=== PATIENT | female | born 1980 | race Caucasian/White ===

== ENCOUNTER → 2017-01-11 | Outpatient (CLI) | payer OTHER ==
--- NOTE | 2017-01-11 17:10 | CR ---
EXAMINATION: Right shoulder HISTORY: Pain COMPARISON: None TECHNIQUE: 3 views FINDINGS/IMPRESSION: There is no acute osseous abnormality, dislocation, or fracture identified. Bon e mineralization and joint spaces appear normal.
== END ==
LOC: MW.CHRC 15:16
PROVIDERS: ATTEND Family Medicine
DX: M25.511 Pain in right shoulder (principal)
CPT/HCPCS: 73030-26-RT; 73030-RT

== ENCOUNTER → 2017-02-25 | Outpatient (CLI) | payer OTHER ==
--- NOTE | 2017-02-28 09:24 | MR ---
EXAMINATION: MRI of the right shoulder HISTORY: Pain COMPARISON: Radiographs dated 01/11/2017 TECHNIQUE: Multiplanar and multisequence images obtained through the right shoulder without contra st. FINDINGS: There is a type II acromion. There is a trace subdeltoid fluid signal. Minimal periarticu lar edema is noted at the acromioclavicular joint. The supraspinatus, infraspinatus, and teres minor tendons appear intact. There is however mild edema within the muscular aspect of the supraspinatus tendon. The long head biceps tendon is present within the bicipital groove. The subscapularis tendon appears intact. The glenohumeral articular surfaces are preserved. The inferior glenohumeral ligame nt is intact. No suspicious bone marrow signal changes. IMPRESSION: 1. Mild edema along the pes planus muscular body, this could represent a mild to moderate muscular s train. 2. No evidence of rotator cuff arthropathy.
== END ==
LOC: MW.MRI 10:29
PROVIDERS: ATTEND Anesthesiology
DX: M25.511 Pain in right shoulder (principal)
CPT/HCPCS: 73221-26-RT; 73221-RT

== ENCOUNTER 2018-07-06 09:14 | Day surgery (SDC) | payer OTHER ==
[2018-07-05 14:35] LABS: CHLORIDE,CL 102 mmol/L (98-107); SODIUM,NA 137 mmol/L (136-145)
[~2018-07-06 09:14] MED LIST: Lactated Ringers 1,000 ML IV SCH; Sodium Chloride 0.9% 10 ML Syringe FLUSH PRN; Sodium Chloride 0.9% 2.5 ML Syringe FLUSH PRN
[2018-07-06] MEDS ORDERED: fentaNYL 250 MCG/5 ML SDV ONE (10:09)
[2018-07-06] MEDS ORDERED: Lidocaine 2% 5 ML SDV ONE (10:09)
[2018-07-06] MEDS ORDERED: Rocuronium 10 MG/ML 10 ML Syringe ONE (10:09)
[2018-07-06] MEDS ORDERED: Ondansetron 4 MG/2 ML SDV ONE ×2 (10:09→13:14)
[2018-07-06] MEDS ORDERED: Midazolam 1 MG/ML 2 ML SDV ONE (10:09)
[2018-07-06] MEDS ORDERED: Propofol 200 MG/20 ML SDV ONE (10:09)
--- NOTE | 2018-07-06 10:18 | PCM.PREANE ---
Preanesthetic Assessment - Anesthesia/Transfusion/Family Hx Anesthesia History: Prior Anesthesia Without Reaction (slow to wake up) Other Type of Anesthesia Reaction Comment: "slow to wake", "depression 3 weeks after anesthesia" Family History of Anesthesia Reaction: No Transfusion History: No Prior Transfusion(s) Intubation History: Unknown - Review of Systems General: No Symptoms Pulmonary: No Symptoms Cardiovascular: No Symptoms Gastrointestinal: Abdominal Pain (chronic pelvic pain) Neurological: No Symptoms Other: Reports: None - Physical Assessment Height: 1.6 m Weight: 65.771 kg ASA Class: 2 Mental Status: Alert & Oriented x3 Airway Class: Mallampati = 2 Dentition: Reports: Sour John(s) (8,9 plus veneer 6,7,10,11) Thyro-Mental Finger Breadths: 3 Mouth Opening Finger Breadths: 3 ROM/Head Extension: Full Lungs: Clear to Auscultation, Normal Respiratory Effort Cardiovascular: Regular Rate, Regular Rhythm - Lab Values: Laboratory Last Values WBC 9.25 K/uL (4.0-11.0) 07/05/18 14:07 RBC 4.81 M/uL (4.30-5.90) 07/05/18 14:07 Hgb 15.1 g/dL (12.0-16.0) 07/05/18 14:07 Hct 43.6 % (36.0-46.0) 07/05/18 14:07 MCV 90.6 fL (80.0-98.0) 07/05/18 14:07 MCH 31.4 pg (27.0-32.0) 07/05/18 14:07 MCHC 34.6 g/dL (31.0-37.0) 07/05/18 14:07 RDW Std Deviation 42.0 fl (28.0-62.0) 07/05/18 14:07 RDW Coeff of Lizz 13 % (11.0-15.0) 07/05/18 14:07 Plt Count 295 K/uL (150-400) 07/05/18 14:07 MPV 9.70 fL (7.40-12.00) 07/05/18 14:07 Nucleated RBC % 0.0 /100WBC 07/05/18 14:07 Nucleated RBCs # 0 K/uL 07/05/18 14:07 Sodium 137 mmol/L (136-145) 07/05/18 14:07 Potassium 4.5 mmol/L (3.5-5.1) 07/05/18 14:07 Chloride 102 mmol/L (98-107) 07/05/18 14:07 Carbon Dioxide 28.0 mmol/L (21.0-32.0) 07/05/18 14:07 BUN 15 mg/dL (7.0-18.0) 07/05/18 14:07 Creatinine 0.8 mg/dL (0.6-1.0) 07/05/18 14:07 Est Cr Clr Drug Dosing 81.19 mL/min 07/05/18 14:07 Estimated GFR (MDRD) > 60.0 ml/min 07/05/18 14:07 Glucose 94 mg/dL (74-106) 07/05/18 14:07 Calcium 9.2 mg/dL (8.5-10.1) 07/05/18 14:07 HCG, Qual NEGATIVE (NEG) 07/05/18 14:07 Blood Type A POSITIVE 07/05/18 14:07 Antibody Screen NEGATIVE 07/05/18 14:07 - Allergies Allergies/Adverse Reactions: Allergies Allergy/AdvReac Type Severity Reaction Status Date / Time latex Allergy Rash Verified 07/04/18 08:05 shellfish derived Allergy tongue Verified 07/04/18 08:08 swelling, throat tightness Sulfa (Sulfonamide Allergy Rash Verified 07/04/18 08:05 Antibiotics) telithromycin [From Ketek] Allergy Hives Verified 07/04/18 08:05 dust Allergy watery Uncoded 07/04/18 08:08 eyes, runny nose - Blood Blood Available: No - Anesthesia Plan Pre-Op Medication Ordered: None - Acknowledgements Anesthesia Type Planned: General Anesthesia Pt an Appropriate Candidate for the Planned Anesthesia: Yes Alternatives and Risks of Anesthesia Discussed w Pt/Guardian: Yes Pt/Guardian Understands and Agrees with Anesthesia Plan: Yes PreAnesthesia Questionnaire HEENT History: Reports: Other (See Below) Other HEENT History: Wears glasses Cardiovascular History: Reports: None Respiratory History: Reports: Other (See Below) Other Respiratory History: milk seasonal asthma Gastrointestinal History: Reports: GERD (mild) Genitourinary History: Reports: Other (See Below) Other Genitourinary History: "floating rt kidney" [employer]LE[employer] SPECIALIST History: Reports: Musculoskeletal History: Reports: Back Pain, Chronic, Fibromyalgia, Neck Pain, Chronic, Other (See Below) Other Musculoskeletal History: Degenerative disc disease, "cyst in my spine" ( syrinx) . Chronic pain syndrome. Neurological History: Reports: None Psychiatric History: Reports: Anxiety, Depression Endocrine/Metabolic History: Reports: None Hematologic History: Reports: None Immunologic History: Reports: None Oncologic (Cancer) History: Reports: None Dermatologic History: Reports: Psoriasis - Infectious Disease History Infectious Disease History: Reports: None - Past Surgical History Head Surgeries/Procedures: Reports: None GI Surgical History: Reports: Cholecystectomy, EGD Female Surgical History: Reports: Breast Implant, Other (See Below) Other Female Surgeries/Procedures: bartholin's cyst excision Other Musculoskeletal Surgeries/Procedures:: 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 - SUBSTANCE USE Smoking Status *Q: Former Smoker Tobacco Use Within Last Twelve Months: No Recreational Drug Use History: No - HOME MEDS Home Medications: Home Meds Cyclobenzaprine [Flexeril] 10 mg PO ASDIRECTED PRN 10/02/16 [History] Gabapentin [Neurontin] 300 mg PO BID 10/02/16 [History] Ketamine Nasal [place] 1 - 2 spray TOP BID 10/02/16 [History] Acetaminophen [Tylenol] 2 tab PO ASDIRECTED PRN 07/04/18 [History] Calcium Carbonate [Tums] 1 tab.chew CHEW ASDIRECTED PRN 07/04/18 [History] Cholecalciferol (Vitamin D3) [Vitamin D3] 5,000 units PO DAILY 07/04/18 [History ] Diclofenac Sodium 1 applic TOP ASDIRECTED PRN 07/04/18 [History] Fish Oil/[place]-3 Fatty Acids [Fish Oil 1,000 MG] 1,000 mg PO DAILY 07/04/18 [ History] Ibuprofen [Advil] 800 mg PO ASDIRECTED PRN 07/04/18 [History] Ketamine Cream 1 applic TOP ASDIRECTED PRN 07/04/18 [History] L.acidoph,Paracasei, B.lactis [Probiotic] 1 tab PO DAILY 07/04/18 [History] Lidocaine/Prilocaine [Lidocaine-Prilocaine Cream] 1 applic TOP ASDIRECTED PRN [History] Magnesium Glycinate [Mag Glycinate] 1 tab PO DAILY 07/04/18 [History] Mecobal/Levomefolat Ca/B6 Phos [Foltanx Tablet] 1 tab PO BID 07/04/18 [History] Melatonin 5 mg PO BEDTIME PRN 07/04/18 [History] Multivitamin [Multivitamins] 1 tab PO DAILY 07/04/18 [History] - CURRENT (IN HOUSE) MEDS Current Meds: Current Medications Lactated Ringer's (Ringers, Lactated) 1,000 mls @ 125 mls/hr IV ASDIRECTED LEONID Sodium Chloride (Saline Flush) 10 ml FLUSH ASDIRECTED PRN PRN Reason: Keep Vein Open Sodium Chloride (Saline Flush) 2.5 ml FLUSH ASDIRECTED PRN PRN Reason: Keep Vein Open Discontinued Medications Fentanyl (Sublimaze) Confirm Administered Dose 250 mcg .ROUTE .STK-MED ONE Stop: 07/06/18 10:10 Lidocaine (Xylocaine-Mpf 2%) Confirm Administered Dose 5 ml .ROUTE .STK-MED ONE Stop: 07/06/18 10:10 Midazolam HCl (Versed 1 Mg/Ml) Confirm Administered Dose 2 mg .ROUTE .STK-MED ONE Stop: 07/06/18 10:10 Ondansetron HCl (Zofran) Confirm Administered Dose 4 mg .ROUTE .STK-MED ONE Stop: 07/06/18 10:10 Propofol (Diprivan 20 Ml) Confirm Administered Dose 200 mg .ROUTE .STK-MED ONE Stop: 07/06/18 10:10 Rocuronium [place] (Zemuron) Confirm Administered Dose 100 mg .ROUTE .STK-MED ONE Stop: 07/06/18 10:10
[2018-07-06] MEDS ORDERED: Ketorolac 30 MG/ML SDV ONE (12:16)
[2018-07-06] MEDS ORDERED: Octyl 2-Cyanoacrylate 1 Tube ONE (12:34)
[2018-07-06] MEDS ORDERED: Acetaminophen/oxyCODONE 325-5 MG Tab PO PRN ×2 (12:35)
[2018-07-06] MEDS ORDERED: Promethazine 25 MG/ML SDV IM PRN (12:35)
[2018-07-06] MEDS ORDERED: Ondansetron 4 MG/2 ML SDV IVPUSH PRN (12:35)
[2018-07-06] MEDS ORDERED: Ketorolac 30 MG/ML SDV IVPUSH PRN (12:35)
[2018-07-06] MEDS ORDERED: Ketorolac 30 MG/ML SDV IVPUSH ONE (12:35)
--- NOTE | 2018-07-06 12:40 | PCM.OPNOTE ---
- General Post-Op/Procedure Note Date of Surgery/Procedure: 07/06/18 Operative Procedure(s): Dignostic laparoscopy, excion and fulgeration of endometerosis Pre Op Diagnosis: Pelvic Pain possible endometrosis Post-Op Diagnosis: Same Anesthesia Technique: General ET Tube Primary Surgeon: Abhishek Madison Hydraulic Oil Tool Operator: Maria R Gaston EBL in mLs: 20 Complications: None Condition: Good
--- NOTE | 2018-07-06 12:41 | PCM.DCSUM1 ---
Discharge Summary - Hospital Course Diagnosis: Stroke: No - Discharge Data Discharge Date: 07/06/18 Discharge Disposition: Home, Self-Care 01 Condition: Good - Patient Summary/Data Operative Procedure(s) Performed: Dignostic laparoscopy, excion and fulgeration of endometerosis - Patient Instructions Diet: Usual Diet as Tolerated Activity: As Tolerated Driving: Do Not Drive Showering/Bathing: May Shower Wound/Incision Care: Keep Operative Site/Wound Site Clean and Dry Notify Provider of: Fever, Increased Pain, Nausea and/or Vomiting - Discharge Plan Home Medications: Home Meds Cyclobenzaprine [Flexeril] 10 mg PO ASDIRECTED PRN 10/02/16 [History] Gabapentin [Neurontin] 300 mg PO BID 10/02/16 [History] Ketamine Nasal [place] 1 - 2 spray TOP BID 10/02/16 [History] Acetaminophen [Tylenol] 2 tab PO ASDIRECTED PRN 07/04/18 [History] Calcium Carbonate [Tums] 1 tab.chew CHEW ASDIRECTED PRN 07/04/18 [History] Cholecalciferol (Vitamin D3) [Vitamin D3] 5,000 units PO DAILY 07/04/18 [History ] Diclofenac Sodium 1 applic TOP ASDIRECTED PRN 07/04/18 [History] Fish Oil/[place]-3 Fatty Acids [Fish Oil 1,000 MG] 1,000 mg PO DAILY 07/04/18 [ History] Ibuprofen [Advil] 800 mg PO ASDIRECTED PRN 07/04/18 [History] Ketamine Cream 1 applic TOP ASDIRECTED PRN 07/04/18 [History] L.acidoph,Paracasei, B.lactis [Probiotic] 1 tab PO DAILY 07/04/18 [History] Lidocaine/Prilocaine [Lidocaine-Prilocaine Cream] 1 applic TOP ASDIRECTED PRN [History] Magnesium Glycinate [Mag Glycinate] 1 tab PO DAILY 07/04/18 [History] Mecobal/Levomefolat Ca/B6 Phos [Foltanx Tablet] 1 tab PO BID 07/04/18 [History] Melatonin 5 mg PO BEDTIME PRN 07/04/18 [History] Multivitamin [Multivitamins] 1 tab PO DAILY 07/04/18 [History] - General Info Date of Service: 07/06/18 Functional Status: Reports: Pain Controlled - Review of Systems General: Reports: No Symptoms HEENT: Reports: No Symptoms Pulmonary: Reports: No Symptoms Cardiovascular: Reports: No Symptoms Gastrointestinal: Reports: No Symptoms Genitourinary: Reports: No Symptoms Musculoskeletal: Reports: No Symptoms Skin: Reports: No Symptoms Neurological: Reports: No Symptoms Psychiatric: Reports: No Symptoms - Patient Data Vitals - Most Recent: Last Vital Signs Temp 36.1 C 07/06/18 10:00 Pulse 90 07/06/18 10:00 Resp 16 07/06/18 10:00 BP 118/83 07/06/18 10:00 Pulse Ox 100 07/06/18 10:00 Weight - Most Recent: 65.771 kg Lab Results - Last 24 hrs: Laboratory Results - last 24 hr 07/05/18 07/05/18 07/05/18 Range/Units 14:07 14:07 14:07 WBC 9.25 (4.0-11.0) K/uL RBC 4.81 (4.30-5.90) M/uL Hgb 15.1 (12.0-16.0) g/dL Hct 43.6 (36.0-46.0) % MCV 90.6 (80.0-98.0) fL MCH 31.4 (27.0-32.0) pg MCHC 34.6 (31.0-37.0) g/dL RDW Std Deviation 42.0 (28.0-62.0) fl RDW Coeff of Lizz 13 (11.0-15.0) % Plt Count 295 (150-400) K/uL MPV 9.70 (7.40-12.00) fL Nucleated RBC % 0.0 /100WBC Nucleated RBCs # 0 K/uL Sodium 137 (136-145) mmol/L Potassium 4.5 (3.5-5.1) mmol/L Chloride 102 (98-107) mmol/L Carbon Dioxide 28.0 (21.0-32.0) mmol/L BUN 15 (7.0-18.0) mg/dL Creatinine 0.8 (0.6-1.0) mg/dL Est Cr Clr Drug Dosing 81.19 mL/min Estimated GFR (MDRD) > 60.0 ml/min Glucose 94 (74-106) mg/dL Calcium 9.2 (8.5-10.1) mg/dL HCG, Qual NEGATIVE (NEG) Blood Type Antibody Screen 07/05/18 Range/Units 14:07 WBC (4.0-11.0) K/uL RBC (4.30-5.90) M/uL Hgb (12.0-16.0) g/dL Hct (36.0-46.0) % MCV (80.0-98.0) fL MCH (27.0-32.0) pg MCHC (31.0-37.0) g/dL RDW Std Deviation (28.0-62.0) fl RDW Coeff of Lizz (11.0-15.0) % Plt Count (150-400) K/uL MPV (7.40-12.00) fL Nucleated RBC % /100WBC Nucleated RBCs # K/uL Sodium (136-145) mmol/L Potassium (3.5-5.1) mmol/L Chloride (98-107) mmol/L Carbon Dioxide (21.0-32.0) mmol/L BUN (7.0-18.0) mg/dL Creatinine (0.6-1.0) mg/dL Est Cr Clr Drug Dosing mL/min Estimated GFR (MDRD) ml/min Glucose (74-106) mg/dL Calcium (8.5-10.1) mg/dL HCG, Qual (NEG) Blood Type A POSITIVE Antibody Screen NEGATIVE Med Orders - Current: Current Medications Lactated Ringer's (Ringers, Lactated) 1,000 mls @ 125 mls/hr IV ASDIRECTED [facility] Last Admin: 07/06/18 10:16 Dose: 125 mls/hr Ketorolac Tromethamine (Toradol) 30 mg IVPUSH Q6H PRN PRN Reason: Pain (severe 7-10) Stop: 07/11/18 12:35 Morphine Sulfate (Morphine) 4 mg IVPUSH Q2H PRN PRN Reason: Pain (severe 7-10) Ondansetron HCl (Zofran) 4 mg IVPUSH Q6H PRN PRN Reason: Nausea/Vomiting Oxycodone/Acetaminophen (Percocet 325-5 Mg) 1 tab PO Q4H PRN PRN Reason: Pain (moderate 4-6) Oxycodone/Acetaminophen (Percocet 325-5 Mg) 2 tab PO Q4H PRN PRN Reason: Pain (moderate 4-6) Promethazine HCl (Phenergan) 25 mg IM Q6H PRN PRN Reason: Nausea/Vomiting Sodium Chloride (Saline Flush) 10 ml FLUSH ASDIRECTED PRN PRN Reason: Keep Vein Open Sodium Chloride (Saline Flush) 2.5 ml FLUSH ASDIRECTED PRN PRN Reason: Keep Vein Open Discontinued Medications Fentanyl (Sublimaze) Confirm Administered Dose 250 mcg .ROUTE .STK-MED ONE Stop: 07/06/18 10:10 Ketorolac Tromethamine (Toradol) Confirm Administered Dose 30 mg .ROUTE .STK- MED ONE Stop: 07/06/18 12:17 Ketorolac Tromethamine (Toradol) 30 mg IVPUSH ONETIME ONE Stop: 07/06/18 12:36 Lidocaine (Xylocaine-Mpf 2%) Confirm Administered Dose 5 ml .ROUTE .STK-MED ONE Stop: 07/06/18 10:10 Midazolam HCl (Versed 1 Mg/Ml) Confirm Administered Dose 2 mg .ROUTE .STK-MED ONE Stop: 07/06/18 10:10 Octyl Cyanoacrylate (Dermabond Advance) Confirm Administered Dose 1 applic .ROUTE .STK-MED ONE Stop: 07/06/18 12:35 Ondansetron HCl (Zofran) Confirm Administered Dose 4 mg .ROUTE .STK-MED ONE Stop: 07/06/18 10:10 Propofol (Diprivan 20 Ml) Confirm Administered Dose 200 mg .ROUTE .STK-MED ONE Stop: 07/06/18 10:10 Rocuronium [place] (Zemuron) Confirm Administered Dose 100 mg .ROUTE .STK-MED ONE Stop: 07/06/18 10:10 - Exam General: Reports: Alert, Oriented HEENT: Reports: Pupils Equal, Pupils Reactive, EOMI, Mucous Membr. Moist/[place] Neck: Reports: Supple Lungs: Reports: Clear to Auscultation, Normal Respiratory Effort Cardiovascular: Reports: Regular Rate, Regular Rhythm GI/Abdominal Exam: Normal Bowel Sounds, Soft, Non-Tender, No Organomegaly, No Distention, No Abnormal Bruit, No Mass, Pelvis Stable (Female) Exam: Normal External Exam, Normal Speculum Exam, Normal Bimanual Exam Rectal (Female) Exam: Normal Exam, Normal Rectal Tone Back Exam: Reports: Normal Inspection, Full Range of Motion Extremities: Normal Inspection, Normal Range of Motion, Non-Tender, No Pedal Edema, Normal Capillary Refill Skin: Reports: Warm, Dry, Intact Wound/Incisions: Reports: Healing Well Neurological: Reports: No New Focal Deficit Psy/Mental Status: Reports: Alert, Normal Affect, Normal Mood
[2018-07-06] MEDS: fentaNYL 100 MCG/2 ML SDV IVPUSH PRN ×2 (13:05→13:10)
[2018-07-06] MEDS ORDERED: Scopolamine 1.5 MG Transdermal Patch ONE (13:14)
[2018-07-06] MEDS: Morphine 4 MG/ML Syringe IVPUSH PRN ×2 (13:19→14:15)
[2018-07-06] MEDS ORDERED: HYDROmorphone 2 MG/ML SDV ONE (13:27)
[2018-07-06] MEDS ORDERED: HYDROmorphone 2 MG/ML SDV IVPUSH ONE (13:28)
--- NOTE | 2018-07-06 13:39 | PCM.POSTAN ---
POST ANESTHESIA ASSESSMENT - MENTAL STATUS Mental Status: Alert, Oriented - RESPIRATORY Respiratory Status: Respiratory Rate WNL, Airway Patent, O2 Saturation Stable - CARDIOVASCULAR CV Status: Pulse Rate WNL, Blood Pressure Stable - GASTROINTESTINAL GI Status: No Symptoms - PAIN Pain Score: 5 - POST OP HYDRATION Hydration Status: Adequate & Stable
[2018-07-06 15:04] VITALS: BP 110/64
--- NOTE | 2018-07-06 20:51 | OR ---
SURGEON: Abhishek Madison MD DATE OF PROCEDURE: 07/06/2018 PREOPERATIVE DIAGNOSES: 1. Pelvic pain. 2. Suspected endometriosis. POSTOPERATIVE DIAGNOSES: 1. Pelvic pain. 2. Endometriosis of the bladder, uterosacral ligament, and the pelvic sidewall, stage I grade 1 by the [employer] staging. OPERATION PERFORMED: Multiple puncture diagnostic laparoscopy, excision and fulguration of endometriosis. ASSORTER LAUNDRY: SOHAIL Zepeda ANESTHESIA: General endotracheal intubation, Ary Dyer and Dr. Pickard. ESTIMATED BLOOD LOSS: Less than 50 mL. COMPLICATIONS: None. FINDINGS: Endometriosis of the bladder flap and then endometriosis on both the uterosacral and ligament in the back of the uterus and then there is a spot of few endometriosis on the left pelvic sidewall. INDICATION FOR SURGERY: [place] refer to the admit note. PROCEDURE IN DETAIL: The patient was brought to the OR, properly identified. After adequate level of anesthesia, the patient was placed in lithotomy position with an access to the abdomen and the vagina. The patient was prepped and draped in sterile fashion as usual. Straight catheter was used to empty the bladder and a Hulka manipulator was placed in the uterus for manipulation. The operation shifted abdominally. Stab wound done beneath the umbilicus. The Veress needle was placed in the peritoneal cavity and that cavity insufflated for 3.5 L of carbon dioxide and then after removing the Veress needle, using the Visiport technique, the abdomen entered with 5 mm trocar umbilically. Once this diet done, then two 5 mm trocar in the right left iliac fossa was done and then the exploring the pelvis with the laparoscope systematically started with the left ovary and ending with the right ovary and with above-mentioned dictated finding. Once we established the finding in the endometriosis spot, then excision of the endometriosis from the bladder flap and the left pelvic sidewall done utilizing unipolar electrocautery without any problem and then the endometriosis spot, which is in the uterosacral ligament and the back of the uterus was fulgurated completely. Satisfied with these finding, and thorough irrigation of the pelvis was done and there was no oozing, no bleeding. The multiple laparoscopic incision was removed and the laparoscopic incision was closed with 2-0 Vicryl and suture in layers. Instrument and sponge count were correct. The patient tolerated the procedure well and went to recovery room in stable general condition. MICHELLE / KAYDEN /[id number]
== END 2018-07-06 15:30 | disposition home or self-care (01) ==
LOC: MW.SDS 09:14
PROVIDERS: ATTEND Obstetrics & Gynecology
DX: N80.3 Endometriosis of pelvic peritoneum (principal); N80.8 Other endometriosis; J45.909 Unspecified asthma, uncomplicated; K21.9 Gastro-esophageal reflux disease without esophagitis; Z87.891 Personal history of nicotine dependence; Z79.899 Other long term (current) drug therapy; Z91.040 Latex allergy status; Z91.048 Other nonmedicinal substance allergy status; Z91.013 Allergy to seafood; Z88.2 Allergy status to sulfonamides; Z88.8 Allergy status to other drugs, medicaments and biological substances
CPT/HCPCS: 36415; 58662; 80048; 84703; 85027; 86850; 86900; 86901; 88305; A9270; J1170; J1885; J2250; J2270; J2405; J2704; J3010; J7120

== ENCOUNTER 2019-06-08 14:59 | Emergency (ER) | payer BC, OTHER ==
[2019-06-08] MEDS ORDERED: Sodium Chloride 0.9% 1,000 ML IV ONE (15:31)
[2019-06-08] MEDS ORDERED: Ondansetron 4 MG/2 ML SDV IVPUSH ONE (15:33)
[2019-06-08] MEDS ORDERED: diphenhydrAMINE 50 MG/ML SDV IVPUSH ONE (15:33)
[2019-06-08] MEDS ORDERED: Metoclopramide 10 MG/2 ML SDV IV ONE (15:33)
[2019-06-08] MEDS ORDERED: Ketorolac 30 MG/ML SDV IVPUSH ONE (15:33)
--- NOTE | 2019-06-08 15:38 | EDM.PDOC ---
<Yoana Stevens - Last Filed: 06/08/19 15:33> ED HPI GENERAL MEDICAL PROBLEM - General Chief Complaint: General Stated Complaint: VOMITTING Time Seen by Provider: 06/08/19 15:02 Source of Information: Reports: Patient History Limitations: Reports: No Limitations - History of Present Illness INITIAL COMMENTS - FREE TEXT/NARRATIVE: HISTORY AND PHYSICAL: History of present illness: Patient is a 38-year-old female presents to the ED today with concern of headache, generalized body aches, and neck pain. Patient states she tried calling [facility] to be seen and evaluated today was told she needed to come to the ED. Patient states over the past couple days she has just had an increase in fatigue as well as generalized body aches. Patient states she has not had a fever. Patient states she has a history of migraines but her headache today is slightly different and not the pain is more intense. Patient states she also has neck pain but no neck stiffness. She feels as if the muscles of her neck are aching. Patient denies any direct injury or trauma. Patient denies any health history. Patient states she has had a hysterectomy. Patient denies any other symptoms or concerns at this time. Patient denies fever, chills, chest pain, shortness of breath, or cough. Denies change in vision, syncope, or near syncope. Denies nausea, vomiting, abdominal pain, diarrhea, constipation, or dysuria. Has not noted any blood in urine or stool. Patient has been eating and drinking appropriately. Review of systems: As per history of present illness and below otherwise all systems reviewed and negative. Past medical history: As per history of present illness and as reviewed below otherwise noncontributory. Surgical history: As per history of present illness and as reviewed below otherwise noncontributory. Social history: See social history for further information Family history: As per history of present illness and as reviewed below otherwise noncontributory. Physical exam: General: Patient is alert, oriented, and in no acute distress. Patient sitting comfortably on exam table. HEENT: Atraumatic, normocephalic, pupils equal and reactive bilaterally, negative for conjunctival pallor or scleral icterus, mucous membranes moist, TMs normal bilaterally, throat clear, neck supple, nontender, trachea midline. No drooling or trismus noted. No meningeal signs. No hot potato voice noted. Lungs: Clear to auscultation, breath sounds equal bilaterally, chest nontender. Heart: S1S2, regular rate and rhythm without overt murmur Abdomen: Soft, nondistended, nontender. Negative for masses or hepatosplenomegaly. Negative for costovertebral tenderness. Pelvis: Stable nontender. Genitourinary: Deferred. Rectal: Deferred. Skin: Intact, warm, dry. No lesions or rashes noted. Extremities/Musculoskeletal: Atraumatic, negative for cords or calf pain. Neurovascular unremarkable. Negative Kernig and Brudzinski sign. No nuchal ridging. No obvious deformities of the complete spine. No step-offs, crepitus, or point tenderness on palpation of the complete spine. Patient has full range of motion of complete spine without difficulty or deficit. Neuro: Awake, alert, oriented. Cranial nerves II through XII unremarkable. Cerebellum unremarkable. Motor and sensory unremarkable throughout. Exam nonfocal. Notes: JANAY Beltran has assumed care of patient and will follow all remaining diagnostics and disposition for patient. Diagnostics: CBC, CMP, UA, Head CT, [place], Strep, Influenza Therapeutics: NS, Benadryl, Zofran, Toradol, Reglan Prescription: Impression: Headache Generalized body aches Neck pain Fatigue Plan: Definitive disposition and diagnosis as appropriate pending reevaluation and review of above. Headache Pain Score (Numeric/FACES): 7 - Related Data Allergies Allergy/AdvReac Type Severity Reaction Status Date / Time latex Allergy Rash Verified 06/08/19 15:25 shellfish derived Allergy tongue Verified 06/08/19 15:25 swelling, throat tightness Sulfa (Sulfonamide Allergy Rash Verified 06/08/19 15:25 Antibiotics) telithromycin [From Ketek] Allergy Hives Verified 06/08/19 15:25 dust Allergy watery Uncoded 07/04/18 08:08 eyes, runny nose Home Meds: Home Meds ClonazePAM [KlonoPIN] 0.5 mg PO QID PRN 06/08/19 [History] Gabapentin [Neurontin] 300 - 600 mg PO ASDIRECTED 06/08/19 [History] Ketamine Hcl [Ketamine Nasal [place] Compound] 1 dose IN ASDIRECTED PRN 06/08/19 [ History] Lidocaine/Prilocaine [Lido-Prilo [place] Pack] 1 dose TOP TID 06/08/19 [History] Mecobal/Levomefolat Ca/B6 Phos [Foltanx Tablet] 1 tab PO BID 06/08/19 [History] Sertraline HCl 50 mg PO DAILY 06/08/19 [History] oxyCODONE HCl/Acetaminophen [Oxycodon-Acetaminophen 7.5-300] 0.5 tab PO Q6H PRN 06/08/19 [History] tiZANidine [Zanaflex] 2 - 4 mg PO TID PRN 06/08/19 [History] Past Medical History HEENT History: Reports: Other (See Below) Other HEENT History: Wears glasses Cardiovascular History: Reports: None Respiratory History: Reports: Other (See Below) Other Respiratory History: mild seasonal asthma Gastrointestinal History: Reports: GERD Genitourinary History: Reports: Other (See Below) Other Genitourinary History: "floating rt kidney" STAFF [employer]IST History: Reports: Endometriosis, Musculoskeletal History: Reports: Back Pain, Chronic, Fibromyalgia, Neck Pain, Chronic, Other (See Below) Other Musculoskeletal History: Degenerative disc disease, "cyst in my spine" ( syrinx) . Chronic pain syndrome. Neurological History: Reports: None Psychiatric History: Reports: Anxiety, Depression Endocrine/Metabolic History: Reports: None Hematologic History: Reports: None Immunologic History: Reports: None Oncologic (Cancer) History: Reports: None Dermatologic History: Reports: Psoriasis - Infectious Disease History Infectious Disease History: Reports: Chicken Pox - Past Surgical History Head Surgeries/Procedures: Reports: None GI Surgical History: Reports: Cholecystectomy, EGD Female Surgical History: Reports: Breast Implant, Endometrial Ablation, Hysterectomy, Other (See Below) Other Female Surgeries/Procedures: bartholin's cyst excision Other Musculoskeletal Surgeries/Procedures:: 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 ED EXAM, GENERAL - Physical Exam Exam: See Below (see dictation) Course - Vital Signs Last Recorded V/S: Last Vital Signs Temp 97.1 F 06/08/19 15:18 Pulse 78 06/08/19 15:18 Resp 18 06/08/19 15:18 BP 129/89 06/08/19 15:18 Pulse Ox 97 06/08/19 15:18 - Orders/Labs/Meds Orders: Active Orders 24 hr Category Date Time Status CULTURE STREP A CONFIRMATION [RM] Stat Lab 06/08/19 16:25 Results STREP SCRN A RAPID W CULT CONF [RM] Stat Lab 06/08/19 16:25 Results Labs: Laboratory Tests 06/08/19 06/08/19 06/08/19 Range/Units 15:23 15:23 15:27 WBC 8.09 (4.0-11.0) K/uL RBC 4.84 (4.30-5.90) M/uL Hgb 14.6 (12.0-16.0) g/dL Hct 43.2 (36.0-46.0) % MCV 89.3 (80.0-98.0) fL MCH 30.2 (27.0-32.0) pg MCHC 33.8 (31.0-37.0) g/dL RDW Std Deviation 42.4 (28.0-62.0) fl RDW Coeff of Lizz 13 (11.0-15.0) % Plt Count 263 (150-400) K/uL MPV 10.10 (7.40-12.00) fL Neut % (Auto) 56.7 (48.0-80.0) % Lymph % (Auto) 31.8 (16.0-40.0) % [place] % (Auto) 8.0 (0.0-15.0) % Eos % (Auto) 3.0 (0.0-7.0) % Baso % (Auto) 0.5 (0.0-1.5) % Neut # (Auto) 4.6 (1.4-5.7) K/uL Lymph # (Auto) 2.6 H (0.6-2.4) K/uL [place] # (Auto) 0.7 (0.0-0.8) K/uL Eos # (Auto) 0.2 (0.0-0.7) K/uL Baso # (Auto) 0.0 (0.0-0.1) K/uL Nucleated RBC % 0.0 /100WBC Nucleated RBCs # 0 K/uL Sodium 140 (136-145) mmol/L Potassium 4.1 (3.5-5.1) mmol/L Chloride 103 (98-107) mmol/L Carbon Dioxide 26.2 (21.0-32.0) mmol/L BUN 15 (7.0-18.0) mg/dL Creatinine 0.9 (0.6-1.0) mg/dL Est Cr Clr Drug Dosing 71.48 mL/min Estimated GFR (MDRD) > 60.0 ml/min Glucose 87 (74-106) mg/dL Calcium 9.3 (8.5-10.1) mg/dL Total Bilirubin 0.3 (0.2-1.0) mg/dL AST 13 L (15-37) IU/L ALT 17 (14-63) IU/L Alkaline Phosphatase 51 (46-116) U/L Total Protein 8.1 (6.4-8.2) g/dL Albumin 4.4 (3.4-5.0) g/dL Globulin 3.7 (2.6-4.0) g/dL Albumin/Globulin Ratio 1.2 (0.9-1.6) Urine Color Urine Appearance Urine pH (5.0-8.0) Ur Specific [place] (1.001-1.035) Urine Protein (NEGATIVE) mg/dL Urine Glucose (UA) (NEGATIVE) mg/dL Urine Ketones (NEGATIVE) mg/dL Urine Occult Blood (NEGATIVE) Urine Nitrite (NEGATIVE) Urine Bilirubin (NEGATIVE) Urine Urobilinogen (<2.0) EU/dL Ur Leukocyte Esterase (NEGATIVE) Urine RBC (0-2/HPF) Urine WBC (0-5/HPF) Ur Epithelial Cells (NONE-FEW) Urine Bacteria (NEGATIVE) Monoscreen NEGATIVE (NEG) 06/08/19 Range/Units 16:20 WBC (4.0-11.0) K/uL RBC (4.30-5.90) M/uL Hgb (12.0-16.0) g/dL Hct (36.0-46.0) % MCV (80.0-98.0) fL MCH (27.0-32.0) pg MCHC (31.0-37.0) g/dL RDW Std Deviation (28.0-62.0) fl RDW Coeff of Lizz (11.0-15.0) % Plt Count (150-400) K/uL MPV (7.40-12.00) fL Neut % (Auto) (48.0-80.0) % Lymph % (Auto) (16.0-40.0) % [place] % (Auto) (0.0-15.0) % Eos % (Auto) (0.0-7.0) % Baso % (Auto) (0.0-1.5) % Neut # (Auto) (1.4-5.7) K/uL Lymph # (Auto) (0.6-2.4) K/uL [place] # (Auto) (0.0-0.8) K/uL Eos # (Auto) (0.0-0.7) K/uL Baso # (Auto) (0.0-0.1) K/uL Nucleated RBC % /100WBC Nucleated RBCs # K/uL Sodium (136-145) mmol/L Potassium (3.5-5.1) mmol/L Chloride (98-107) mmol/L Carbon Dioxide (21.0-32.0) mmol/L BUN (7.0-18.0) mg/dL Creatinine (0.6-1.0) mg/dL Est Cr Clr Drug Dosing mL/min Estimated GFR (MDRD) ml/min Glucose (74-106) mg/dL Calcium (8.5-10.1) mg/dL Total Bilirubin (0.2-1.0) mg/dL AST (15-37) IU/L ALT (14-63) IU/L Alkaline Phosphatase (46-116) U/L Total Protein (6.4-8.2) g/dL Albumin (3.4-5.0) g/dL Globulin (2.6-4.0) g/dL Albumin/Globulin Ratio (0.9-1.6) Urine Color YELLOW Urine Appearance CLEAR Urine pH 6.5 (5.0-8.0) Ur Specific [place] 1.010 (1.001-1.035) Urine Protein NEGATIVE (NEGATIVE) mg/dL Urine Glucose (UA) NEGATIVE (NEGATIVE) mg/dL Urine Ketones NEGATIVE (NEGATIVE) mg/dL Urine Occult Blood TRACE-INTACT H (NEGATIVE) Urine Nitrite NEGATIVE (NEGATIVE) Urine Bilirubin NEGATIVE (NEGATIVE) Urine Urobilinogen 0.2 (<2.0) EU/dL Ur Leukocyte Esterase NEGATIVE (NEGATIVE) Urine RBC 0-2 (0-2/HPF) Urine WBC 0-1 (0-5/HPF) Ur Epithelial Cells OCCASIONAL (NONE-FEW) Urine Bacteria RARE (NEGATIVE) Monoscreen (NEG) Meds: Medications Discontinued Medications Generic Name Dose Route Start Last Admin Trade Name Freq PRN Reason Stop Dose Admin Diphenhydramine HCl 25 mg 06/08/19 15:33 06/08/19 15:46 Benadryl IVPUSH 06/08/19 15:34 25 mg ONETIME ONE Administration Sodium Chloride 1,000 mls @ 999 mls/hr 06/08/19 15:31 06/08/19 15:47 Normal Saline IV 06/08/19 16:31 999 mls/hr BOLUS ONE Administration Ketorolac Tromethamine 30 mg 06/08/19 15:33 06/08/19 15:46 Toradol IVPUSH 06/08/19 15:34 30 mg ONETIME ONE Administration Metoclopramide HCl 10 mg 06/08/19 15:33 06/08/19 15:46 Reglan IV 06/08/19 15:34 10 mg ONETIME ONE Administration Ondansetron HCl 4 mg 06/08/19 15:33 06/08/19 15:46 Zofran IVPUSH 06/08/19 15:34 4 mg ONETIME ONE Administration Departure - Departure Disposition: Home, Self-Care 01 Clinical Impression: Cephalalgia - Discharge Information Referrals: Daljit Long MD [Primary Care Provider] - Forms: ED Department Discharge Additional Instructions: The following information is given to patients seen in the emergency department who are being discharged to home. This information is to outline your options for follow-up care. We provide all patients seen in our emergency department with a follow-up referral. The need for follow-up, as well as the timing and circumstances, are variable depending upon the specifics of your emergency department visit. If you don't have a primary care physician on staff, we will provide you with a referral. We always advise you to contact your personal physician following an emergency department visit to inform them of the circumstance of the visit and for follow-up with them and/or the need for any referrals to a consulting specialist. The emergency department will also refer you to a specialist when appropriate. This referral assures that you have the opportunity for follow-up care with a specialist. All of these measure are taken in an effort to provide you with optimal care, which includes your follow-up. Under all circumstances we always encourage you to contact your private physician who remains a resource for coordinating your care. When calling for follow-up care, please make the office aware that this follow-up is from your recent emergency room visit. If for any reason you are refused follow-up, please contact the [facility] Emergency Department at and asked to speak to the emergency department charge nurse. [facility] [address] [place] [id number] [id number] Drink plenty of fluids and alternate Tylenol and Motrin as needed. Follow-up with primary care provider Return to ED as needed as discussed <Riky Kirkland - Last Filed: 06/08/19 17:15> Departure - Departure Time of Disposition: 17:15 Condition: Good
[2019-06-08 15:59] LABS: CHLORIDE,CL 103 mmol/L (98-107); SODIUM,NA 140 mmol/L (136-145)
--- NOTE | 2019-06-08 16:23 | CR ---
INDICATION: body aches TECHNIQUE: Chest 1 view. COMPARISON: 10/02/16 FINDINGS: Cardiovascular and mediastinum: Heart size and vasculature are normal in caliber and appearance. Mediastinum is within normal limits. Lungs and pleural space: Lungs are clear. No sign of infiltrate or mass. No sign of pleural effusion. No pneumothorax. Bones and soft tissues: No significant findings. IMPRESSION: Unremarkable chest. Dictated by: Alex Sotomayor MD @ 06/08/2019 16:20:27 (Electronically Signed)
--- NOTE | 2019-06-08 16:25 | CT ---
INDICATION: 38-year-old female. Headaches. TECHNIQUE: CT images from foramen magnum to the vertex were obtained without contrast. Axial sagittal and coronal reformat images are reviewed. FINDINGS: The lateral 3rd and 4th ventricles are normal in size and shape. No evidence of acute intracranial hemorrhage. No evidence of acute subarachnoid hemorrhage. No subdural fluid collections. No mass effect. No areas of abnormal brain density. No posterior fossa hemorrhage or mass effect. Bony calvarium is unremarkable. Small retention cyst in the left maxillary antrum. IMPRESSION: Normal CT brain without contrast. Please note that all CT scans at this facility use dose modulation, iterative reconstruction, and/or weight-based dosing when appropriate to reduce radiation dose to as low as reasonably achievable. Dictated by Salty Sanabria MD @ Jun 08 2019 4:22PM Signed by Dr. Salty Sanabria @ Jun 08 2019 4:24PM
[2019-06-08 17:29] VITALS: BP 101/66
== END 2019-06-08 17:30 | disposition home or self-care (01) ==
LOC: MW.ED 14:59
DX: R51 Headache (principal); M54.2 Cervicalgia; M79.10 Myalgia, unspecified site; R53.83 Other fatigue; Z91.040 Latex allergy status; Z91.013 Allergy to seafood; Z88.2 Allergy status to sulfonamides; Z91.09 Other allergy status, other than to drugs and biological substances; Z88.8 Allergy status to other drugs, medicaments and biological substances
CPT/HCPCS: 36415; 70450; 71045; 80053; 81001; 85025; 86308; 87081; 87804; 87880; 96361; 96374; 96375; 99284; J1200; J1885; J2405; J2765; J7040

== ENCOUNTER 2021-01-16 10:05 | Inpatient (IN) | payer BC ==
[2021-01-16] MEDS ORDERED: Sodium Chloride 0.9% 10 ML Syringe FLUSH PRN (10:56)
[2021-01-16] MEDS ORDERED: Sodium Chloride 0.9% 2.5 ML Syringe FLUSH PRN (10:56)
--- NOTE | 2021-01-16 11:22 | EDM.PDOC ---
ED HPI GENERAL MEDICAL PROBLEM - General Chief Complaint: General Stated Complaint: CANT WALK Time Seen by Provider: 01/16/21 10:09 Source of Information: Reports: Patient History Limitations: Reports: No Limitations - History of Present Illness INITIAL COMMENTS - FREE TEXT/NARRATIVE: HISTORY AND PHYSICAL: History of present illness: Patient is a 40-year-old female resents to the emergency room today with concern of bilateral lower extremity weakness, worse on the left, that started this morning and is having difficulties with ambulation requiring a cane for walking. Patient states prior to this morning, she was walking without any difficulties. Patient states when she woke up to go to the bathroom early this morning around 8 AM, she could not walk without falling. Patient states that she does not have any sensation changes or pain but states that her left leg, worse on the right, will give out on her consistently and she is unable to bear weight and has been unable to walk. 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 Patient states that she has some issues with her right arm occasionally having difficulties due to the thoracic outlet syndrome and states that she generally can get a burning sensation across her spine in relation to the cyst. Patient states that she also has had issues with syncopal episodes over the past several months and orthostasis that she has been following with a neurologist for. Patient states that she has an appointment at [facility] with a neurology specialist in relation to these other symptoms. Patient states in the past, she has never had any difficulties with walking and states that her symptoms today are new and changed. Patient denies any head injury or loss of consciousness. Patient denies any other symptoms or concerns. Patient denies any loss or retention of bowel bladder function or saddle anesthesia. Patient denies fever, chills, chest pain, shortness of breath, or cough. Denies headache, neck stiff ness, change in vision, syncope, or near syncope. Denies nausea, vomiting, abdominal pain, diarrhea, constipation, or dysuria. Has not noted any blood in urine or stool. Patient has been eating and drinking appropriately. Review of systems: As per history of present illness and below otherwise all systems reviewed and negative. Past medical history: As per history of present illness and as reviewed below otherwise noncontributory. Surgical history: As per history of present illness and as reviewed below otherwise noncontributory. Social history: See social history for further information Family history: As per history of present illness and as reviewed below otherwise noncontributory. Physical exam: General: Patient is alert, oriented, and in no acute distress. Patient sitting comfortably on exam table. Vitals stable and reviewed by me. HEENT: Atraumatic, normocephalic, pupils equal and reactive bilaterally, negative for conjunctival pallor or scleral icterus, mucous membranes moist, TMs normal bilaterally, throat clear, neck supple, nontender, trachea midline. No drooling or trismus noted. No meningeal signs. No hot potato voice noted. Lungs: Clear to auscultation, breath sounds equal bilaterally, chest nontender. Heart: S1S2, regular rate and rhythm without overt murmur Abdomen: Soft, nondistended, nontender. Negative for masses or hepatosplenomegaly. Negative for costovertebral tenderness. Pelvis: Stable nontender. Genitourinary: Deferred. Rectal: Deferred. Skin: Intact, warm, dry. No lesions or rashes noted. Extremities: Atraumatic, negative for cords or calf pain. Neurovascular unremarkable. Neuro: Awake, alert, oriented. Cranial nerves II through XII unremarkable. Patient required a cane for ambulation. When patient ambulates, her left LE fasciculates when weight is put onto it. She is able to bear full weight on the right LE. Intact sensation to light and deep touch to bilateral LE with DP/PT pulses intact bilaterally. No obvious deformity, rashes, lesions, erythema, ecchymosis, or abnormalities of bilateral LE. Notes: Dr. Hays verbally involved in patient care. On initial exam, patient does have intact sensation of bilateral lower extremities and neurovascularly is intact. However, she is unable to ambulate as her left leg does fasciculate and "give out "when she tries to bear any amount of weight on it. I did call MRI and they are able to get patient into scan at 12:45. This would be similar timing if patient was transferred for emergent MRI. MRI today show no acute changes from prior and head CT negative. Remainder of labwork unremarkable Dr. Laguerre, neurology [place], has come in to personally see and evaluate the patient. See her official consult note for further treatment and disposition. Dr. Cope, hospitalist [place], consulted on patient and will admit to inpatient to Dr. Cope with consult to Dr. Laguerre. Voices understanding and is agreeable to plan of care. Denies any further questions or concerns at this time. Diagnostics: EKG, CBC, CMP, Serum hcg, Head CT, MRI thoracic/lumbar w/w/o cont, COVID Therapeutics: None Impression: Lower extremity weakness Fall risk Unable to ambulate Plan: Admit to inpatient to Dr. Cope with consult to Dr. Laguerre. Definitive disposition and diagnosis as appropriate pending reevaluation and review of above. Back Pain Score (Numeric/FACES): 5 - Related Data Allergies Allergy/AdvReac Type Severity Reaction Status Date / Time avocado Allergy Itching Verified 01/16/21 10:22 banana Allergy Itching Verified 01/16/21 10:22 capsaicin Allergy Hives Verified 01/16/21 10:23 latex Allergy Rash Verified 01/16/21 10:22 pomegranate Allergy Itching Verified 01/16/21 10:22 shellfish derived Allergy tongue Verified 01/16/21 10:22 swelling, throat tightness Sulfa (Sulfonamide Allergy Rash Verified 01/16/21 10:22 Antibiotics) telithromycin [From Ketek] Allergy Hives Verified 01/16/21 10:22 dust Allergy watery Uncoded 01/16/21 10:22 eyes, runny nose Home Meds: Home Meds Ketamine Hcl [Ketamine Nasal [place] Compound] 1 dose IN ASDIRECTED PRN 06/08/19 [History] Cholecalciferol (Vitamin D3) [Vitamin D] 5,000 tab DAILY 01/16/21 [History] ClonazePAM [KlonoPIN] 0.5 mg PO BID 01/16/21 [History] Naltrexone 2 mg PO BID 01/16/21 [History] Naltrexone 6.5 mg PO BEDTIME 01/16/21 [History] Pregabalin [Lyrica] 75 mg PO BID 01/16/21 [History] Sertraline [Zoloft] 75 mg PO DAILY 01/16/21 [History] Past Medical History HEENT History: Reports: Other (See Below) Other HEENT History: Wears glasses Cardiovascular History: Reports: None Respiratory History: Reports: Other (See Below) Other Respiratory History: mild seasonal asthma Gastrointestinal History: Reports: GERD Genitourinary History: Reports: Other (See Below) Other Genitourinary History: "floating rt kidney" 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 Chronic pain syndrome. Neurological History: Reports: None Psychiatric History: Reports: Anxiety, Depression Endocrine/Metabolic History: Reports: None Hematologic History: Reports: None Immunologic History: Reports: None Oncologic (Cancer) History: Reports: None Dermatologic History: Reports: Psoriasis - Infectious Disease History Infectious Disease History: Reports: Chicken Pox - Past Surgical History Head Surgeries/Procedures: Reports: None HEENT Surgical History: Reports: Other (See Below) Other HEENT Surgeries/Procedures: Benign growth from throat Cardiovascular Surgical History: Reports: None Respiratory Surgical History: Reports: None GI Surgical History: Reports: Cholecystectomy, EGD Female Surgical History: Reports: Breast Implant, Endometrial Ablation, Hysterectomy, Other (See Below) Other Female Surgeries/Procedures: bartholin's cyst excision Endocrine Surgical History: Reports: None Neurological Surgical History: Reports: None Other Musculoskeletal Surgeries/Procedures:: 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 Social & Family History - Family History Family Medical History: Unobtainable - Caffeine Use Caffeine Use: Reports: Coffee - Recreational Drug Use Recreational Drug Use: No ED ROS GENERAL - Review of Systems Review Of Systems: Comprehensive ROS is negative, except as noted in HPI. ED EXAM, GENERAL - Physical Exam Exam: See Below (see dictation) Course - Vital Signs Last Recorded V/S: Last Vital Signs Temp 97.6 F 01/16/21 10:41 Pulse 67 01/16/21 12:47 Resp 18 01/16/21 10:41 BP 93/58 L 01/16/21 12:47 Pulse Ox 99 01/16/21 12:47 - Orders/Labs/Meds Orders: Active Orders 24 hr Category Date Time Status EKG Documentation Completion [RC] STAT Care 01/16/21 10:56 Active Notify Provider Consults [RC] ASDIRECTED Care 01/16/21 15:21 Active Consult to Physician [CONS] Stat Cons 01/16/21 15:21 Active Sodium Chloride 0.9% [Saline Flush] Med 01/16/21 10:56 Active 10 ml FLUSH ASDIRECTED PRN Sodium Chloride 0.9% [Saline Flush] Med 01/16/21 10:56 Active 2.5 ml FLUSH ASDIRECTED PRN Saline Lock Insert [OM.PC] Stat Oth 01/16/21 10:56 Ordered Medication Orders Sodium Chloride (Sodium Chloride 0.9% 10 Ml Syringe) 10 ml FLUSH ASDIRECTED PRN PRN Reason: Keep Vein Open Last Admin: 01/16/21 11:15 Dose: 10 ml Documented by: KARUNA Sodium Chloride (Sodium Chloride 0.9% 2.5 Ml Syringe) 2.5 ml FLUSH ASDIRECTED PRN PRN Reason: Keep Vein Open Last Admin: 01/16/21 11:14 Dose: 2.5 ml Documented by: KARUNA Labs: Laboratory Tests 01/16/21 01/16/21 01/16/21 Range/Units 11:08 11:08 11:08 WBC 5.59 (4.0-11.0) K/uL RBC 4.76 (4.30-5.90) M/uL Hgb 14.6 (12.0-16.0) g/dL Hct 42.6 (36.0-46.0) % MCV 89.5 (80.0-98.0) fL MCH 30.7 (27.0-32.0) pg MCHC 34.3 (31.0-37.0) g/dL RDW Std Deviation 41.8 (28.0-62.0) fl RDW Coeff of Lizz 13 (11.0-15.0) % Plt Count 245 (150-400) K/uL MPV 10.20 (7.40-12.00) fL Neut % (Auto) 59.8 (48.0-80.0) % Lymph % (Auto) 28.1 (16.0-40.0) % [place] % (Auto) 8.1 (0.0-15.0) % Eos % (Auto) 3.6 (0.0-7.0) % Baso % (Auto) 0.4 (0.0-1.5) % Neut # (Auto) 3.4 (1.4-5.7) K/uL Lymph # (Auto) 1.6 (0.6-2.4) K/uL [place] # (Auto) 0.5 (0.0-0.8) K/uL Eos # (Auto) 0.2 (0.0-0.7) K/uL Baso # (Auto) 0.0 (0.0-0.1) K/uL Nucleated RBC % 0.0 /100WBC Nucleated RBCs # 0 K/uL Sodium 137 (136-145) mmol/L Potassium 3.8 (3.5-5.1) mmol/L Chloride 102 (98-107) mmol/L Carbon Dioxide 24.7 (21.0-32.0) mmol/L BUN 14 (7.0-18.0) mg/dL Creatinine 0.9 (0.6-1.0) mg/dL Est Cr Clr Drug Dosing 70.11 mL/min Estimated GFR (MDRD) > 60.0 ml/min Glucose 89 (74-106) mg/dL Calcium 8.8 (8.5-10.1) mg/dL Total Bilirubin 0.5 (0.2-1.0) mg/dL AST 13 L (15-37) IU/L ALT 18 (14-63) IU/L Alkaline Phosphatase 51 (46-116) U/L Total Protein 7.7 (6.4-8.2) g/dL Albumin 4.3 (3.4-5.0) g/dL Globulin 3.4 (2.6-4.0) g/dL Albumin/Globulin Ratio 1.3 (0.9-1.6) HCG, Qual NEGATIVE (NEG) Urine Color Urine Appearance Urine pH (5.0-8.0) Ur Specific [place] (1.001-1.035) Urine Protein (NEGATIVE) mg/dL Urine Glucose (UA) (NEGATIVE) mg/dL Urine Ketones (NEGATIVE) mg/dL Urine Occult Blood (NEGATIVE) Urine Nitrite (NEGATIVE) Urine Bilirubin (NEGATIVE) Urine Urobilinogen (<2.0) EU/dL Ur Leukocyte Esterase (NEGATIVE) Urine RBC (0-2/HPF) Urine WBC (0-5/HPF) Ur Epithelial Cells (NONE-FEW) Urine Bacteria (NEGATIVE) 01/16/21 Range/Units 11:13 WBC (4.0-11.0) K/uL RBC (4.30-5.90) M/uL Hgb (12.0-16.0) g/dL Hct (36.0-46.0) % MCV (80.0-98.0) fL MCH (27.0-32.0) pg MCHC (31.0-37.0) g/dL RDW Std Deviation (28.0-62.0) fl RDW Coeff of Lizz (11.0-15.0) % Plt Count (150-400) K/uL MPV (7.40-12.00) fL Neut % (Auto) (48.0-80.0) % Lymph % (Auto) (16.0-40.0) % [place] % (Auto) (0.0-15.0) % Eos % (Auto) (0.0-7.0) % Baso % (Auto) (0.0-1.5) % Neut # (Auto) (1.4-5.7) K/uL Lymph # (Auto) (0.6-2.4) K/uL [place] # (Auto) (0.0-0.8) K/uL Eos # (Auto) (0.0-0.7) K/uL Baso # (Auto) (0.0-0.1) K/uL Nucleated RBC % /100WBC Nucleated RBCs # K/uL Sodium (136-145) mmol/L Potassium (3.5-5.1) mmol/L Chloride (98-107) mmol/L Carbon Dioxide (21.0-32.0) mmol/L BUN (7.0-18.0) mg/dL Creatinine (0.6-1.0) mg/dL Est Cr Clr Drug Dosing mL/min Estimated GFR (MDRD) ml/min Glucose (74-106) mg/dL Calcium (8.5-10.1) mg/dL Total Bilirubin (0.2-1.0) mg/dL AST (15-37) IU/L ALT (14-63) IU/L Alkaline Phosphatase (46-116) U/L Total Protein (6.4-8.2) g/dL Albumin (3.4-5.0) g/dL Globulin (2.6-4.0) g/dL Albumin/Globulin Ratio (0.9-1.6) HCG, Qual (NEG) Urine Color YELLOW Urine Appearance CLEAR Urine pH 6.5 (5.0-8.0) Ur Specific [place] 1.015 (1.001-1.035) Urine Protein NEGATIVE (NEGATIVE) mg/dL Urine Glucose (UA) NEGATIVE (NEGATIVE) mg/dL Urine Ketones NEGATIVE (NEGATIVE) mg/dL Urine Occult Blood TRACE-INTACT H (NEGATIVE) Urine Nitrite NEGATIVE (NEGATIVE) Urine Bilirubin NEGATIVE (NEGATIVE) Urine Urobilinogen 0.2 (<2.0) EU/dL Ur Leukocyte Esterase NEGATIVE (NEGATIVE) Urine RBC 0-2 (0-2/HPF) Urine WBC 0-2 (0-5/HPF) Ur Epithelial Cells FEW (NONE-FEW) Urine Bacteria FEW (NEGATIVE) Meds: Medications Generic Name Dose Route Start Last Admin Trade Name Freq PRN Reason Stop Dose Admin Sodium Chloride 10 ml 01/16/21 10:56 01/16/21 11:15 Sodium Chloride 0.9% 10 Ml Syringe FLUSH 10 ml ASDIRECTED PRN Administration Keep Vein Open Sodium Chloride 2.5 ml 01/16/21 10:56 01/16/21 11:14 Sodium Chloride 0.9% 2.5 Ml Syringe FLUSH 2.5 ml ASDIRECTED PRN Administration Keep Vein Open Discontinued Medications Generic Name Dose Route Start Last Admin Trade Name Freq PRN Reason Stop Dose Admin Gadobenate Dimeglumine 20 ml 01/16/21 13:39 01/16/21 13:40 Gadobenate Dimeglumine 529 Mg/Ml 20 Ml Sdv IVPUSH 01/16/21 13:40 12 ml ONETIME STA Administration Departure - Departure Time of Disposition: 17:39 Disposition: Admitted As Inpatient 68 Clinical Impression: Bilateral leg weakness, Risk for falls, Unable to ambulate - Discharge Information Sepsis Event Note (ED) - Evaluation Sepsis Screening Result: No Definite Risk - Focused Exam Vital Signs: Vital Signs Temp Pulse Resp BP Pulse Ox 01/16/21 12:47 67 93/58 L 99 01/16/21 10:41 97.6 F 82 18 117/75 97 - My Orders Last 24 Hours: My Active Orders 01/16/21 10:56 EKG Documentation Completion [RC] STAT Sodium Chloride 0.9% [Saline Flush] 10 ml FLUSH ASDIRECTED PRN Sodium Chloride 0.9% [Saline Flush] 2.5 ml FLUSH ASDIRECTED PRN Saline Lock Insert [OM.PC] Stat 01/16/21 15:21 Notify Provider Consults [RC] ASDIRECTED Consult to Physician [CONS] Stat - Assessment/Plan Last 24 Hours: My Active Orders 01/16/21 10:56 EKG Documentation Completion [RC] STAT Sodium Chloride 0.9% [Saline Flush] 10 ml FLUSH ASDIRECTED PRN Sodium Chloride 0.9% [Saline Flush] 2.5 ml FLUSH ASDIRECTED PRN Saline Lock Insert [OM.PC] Stat 01/16/21 15:21 Notify Provider Consults [RC] ASDIRECTED Consult to Physician [CONS] Stat
--- NOTE | 2021-01-16 11:24 | PCM.EKG ---
#1 Interpretation EKG Date: 01/16/21 Time: 11:10 Rhythm: NSR Rate (Beats/Min): 68 ST-T: Normal
[2021-01-16 11:44] LABS: BLOOD UREA NITROGEN,BUN 14 mg/dL (7.0-18.0); CARBON DIOXIDE,CO2 24.7 mmol/L (21.0-32.0); CHLORIDE,CL 102 mmol/L (98-107); GLUCOSE RANDOM 89 mg/dL (74-106); POTASSIUM,K 3.8 mmol/L (3.5-5.1); SODIUM,NA 137 mmol/L (136-145)
--- NOTE | 2021-01-16 13:02 | CT ---
INDICATION: Leg numbness. TECHNIQUE: CT head without contrast. COMPARISON: June 08, 2019. FINDINGS: CSF spaces: Within normal limits for age. Brain parenchyma and extra-axial spaces: The szymanski-white differentiation is normal. No sign of mass, hemorrhage, or midline shift. No extra-axial fluid collection. Skull base and calvarium: The visualized paranasal sinuses and mastoid air cells demonstrate no acute or significant findings. The visualized orbits are grossly unremarkable. No skull fractures. IMPRESSION: Normal CT of the head. No change from the prior exam. Please note that all CT scans at this facility use dose modulation, iterative reconstruction, and/or weight-based dosing when appropriate to reduce radiation dose to as low as reasonably achievable. Dictated by Liu Melgar MD @ Jan 16 2021 12:58PM Signed by Dr. Liu Melgar @ Jan 16 2021 1:01PM
[2021-01-16] MEDS ORDERED: Gadobenate Dimeglumine 529 MG/ML 20 ML SDV IVPUSH STA (13:39)
--- NOTE | 2021-01-16 14:17 | MR ---
Indication: Unable to walk. Left leg worse than right. Technique: Noncontrast sagittal and axial T1, T2, and sagittal STIR sequences are provided. Comparison: No prior studies available for comparison at this institution. Findings: Lumbar lordosis is preserved. Vertebral heights maintained. No aggressive osseous lesions. No acute fracture, dislocation or subluxation. No prevertebral or paraspinal soft tissue swelling. Disc desiccation is noted at L4-5 and L5-S1. Conus medullaris is normal in signal and location. T11-12: No spinal canal stenosis or neural foramina narrowing. T12-L1: No spinal canal stenosis or neural foramina narrowing. L1-2: No spinal canal stenosis or neural foramina narrowing. L2-3: No spinal canal stenosis or neural foramina narrowing. L3-4: No spinal canal stenosis or neural foramina narrowing. L4-5: Broad-based posterior disc bulge with high intensity zone minimally indents the thecal sac without spinal canal stenosis. No neural foramina narrowing. L5-S1: Disc desiccation. Mild disc space narrowing. Diffuse disc bulge eccentric to the left contacts and may irritate the exited left L5 nerve (image 13 series 601). Mild indentation of the thecal sac and contact with the bilateral S1 nerve sheaths without juli impingement. No spinal canal stenosis. Modic type 2 endplate changes on the left side. Nonunion of the S1 posterior arch consistent with spina bifida occulta. Impression: 1. At L5-S1 there is mild disc degeneration disc bulge eccentric to the left with marginal endplate spurring that contacts and may irritate the exited left L5 nerve. Mild indentation of the thecal sac and contact with the bilateral S1 nerve sheaths without juli impingement. 2. At L4-5 there is a broad-based posterior disc bulge with high intensity zone that minimally indents the thecal sac without spinal canal stenosis. No neural foramina narrowing. 3. Normal alignment. No acute osseous abnormality. 4. Nonunion of the S1 posterior arch consistent with incidental spina bifida occulta. Dictated by Alex Mijares MD @ Jan 16 2021 2:06PM Signed by Dr. Alex Mijares @ Jan 16 2021 2:16PM
--- NOTE | 2021-01-16 14:49 | MR ---
Indication: Unable to walk, left leg worse than right. Technique: Noncontrast sagittal T1, T2, STIR and axial T2 sequences are provided. Post-contrast images after administration of 12 cc MultiHance IV contrast. Comparison: 07/04/2018 MRI thoracic spine. Findings: The overall stature, alignment and intrinsic marrow signal of the thoracic spine is within normal limits. No suspicious disc bulges or protrusions. No central canal or foraminal narrowing. Stable region of dilation of the central spinal canal at the T5-6 through T8 levels measuring up to 4 x 4 millimeters axially and 5.7 cm craniocaudally. No evidence of spinal cord edema or atrophy. No abnormal postcontrast enhancement. Impression: 1. Normal alignment. No disc bulge or herniation. No spinal canal stenosis or neural foramina narrowing. 2. 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 3. No abnormal enhancement. Dictated by Alex Mijares MD @ Jan 16 2021 2:39PM Signed by Dr. Alex Mijares @ Jan 16 2021 2:47PM
--- NOTE | 2021-01-16 17:02 | PCM.CONS ---
H&P History of Present Illness - General Date of Service: 01/16/21 Admit Problem/Dx: Admission Diagnosis/Problem Admission Diagnosis/Problem Weakness - History of Present Illness Initial Comments - Free Text/Narative: This morning, when she woke up, she couldnt walk. She felt weakness and stiffness in both lower limbs. They wouldnt do what her brain told them to do. The weakness in the right leg as improved, but her left leg continues to give out. She is using a cane that is her mothers. No numbness. She endorses difficulty initiating urination, but this has come and gone and thus not new. Her chronic thoracic back pain has been worse in the last few months. She has appt in February with somebody that specialize in syrinx. For years, she has been passing out, previously with warning of dizziness, but now frequently abrupt LOC leading to falls. She can have up to 20 / day, not every day. She had seen a import/export freight forwarder years back. Additional prior I had seen her in 2015 for right upper limb pain. She also had pain in her lower back that radiated down [id number]-left legs. She had noted constant muscle and joint pain. She noted headaches that were intense. MRI cervical spine July 18 2015 demonstrated a mild disk herniation C6-C7 associated with mild bilateral neural foraminal stenosis and spinal canal stenosis. Otherwise unremarkable. MRI lumbar spine July 21 2015 demonstrated small disc bulges at L4-L5 and L5-S1 without significant stenosis. NCS/EMG 09/03/2016 normal right upper and lower limb study. She has since continued to follow up with Dr. Carlton for chronic pain. She underwent C and T spine in June 2017, referred by Dr. Carlton in anticipation of spinal cord stimulation trial, which showed syrinx T4-T9 3.5 mm in diameter. She was referred to neurosurgery for evaluation of syrinx. 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 She had repeat NCS/EMG 07/31/2019 right upper limb that was normal. MRI T spine today showed stable findings of syrinx. MRI L spine showed mild disc bulges at L4-5 and L5-S1. CT head today normal Examination: Constitutional: No acute distress Neurological: Mental Status: General: Normal activity, good hygiene, appropriate appearance. Level of consciousness: Awake, alert. Orientation: Oriented to person, place, time and situation. Cranial Nerves: Aniscoria L < R (history of horners following thoracic outlet surgery). Visual frazier full to confrontation. Gaze conjugate, EOMI.. Normal shrug bilaterally. Motor: Giveway right upper limb (chronic pain) [place] in right hip flexors and all muscle groups left lower limb with at least 4+ /5 strength but inconsistent. Sensation: Sensation is intact temp and vibratory sense in lower limbs. Deep tendon reflexes: Normoactive throughout. Plantar responses are flexor bilaterally. Coordination: No dysmetric, tremor note in RUE Gait: astasia abasia Impression: Gait dysfunction Examination most consistent with functional weakness. The motor examination finding could be seen with sensory ataxia, but her sensation is intact. MRI T and L spine showed stable syrinx, no other findings to explain symptoms. Presentation including exam is inconsistent with GBS. Regarding her history of multitude of chronic symptoms, an MRI brain and C spine is usama chaparro (current presentation of bilateral lower limb weakness unlikely to localize to brain, but other chronic issues warrant brain imaging), but we can do this as an outpatient. Her weakness has improved since this morning, but ability to walk independently is impaired. I think she would be best served by a brief hospital stay with physical therapy to assess, dispense walker if weakness still persistent tomorrow. I can follow up with her after MRI brain and C spine as outpatient. I spoke to JANAY Irwin regarding my recommendations. She expressed concern that she may need to be transferred out. Certainly, that may need to be considered if she has new or worsening symptoms; otherwise, Dr. Cope or whoever is on service tomorrow can reach out to me tomorrow if needed prior to considering discharge. Back Pain Score (Numeric/FACES): 5 - Related Data Allergies/Adverse Reactions: Allergies Allergy/AdvReac Type Severity Reaction Status Date / Time avocado Allergy Itching Verified 01/16/21 10:22 banana Allergy Itching Verified 01/16/21 10:22 capsaicin Allergy Hives Verified 01/16/21 10:23 latex Allergy Rash Verified 01/16/21 10:22 pomegranate Allergy Itching Verified 01/16/21 10:22 shellfish derived Allergy tongue Verified 01/16/21 10:22 swelling, throat tightness Sulfa (Sulfonamide Allergy Rash Verified 01/16/21 10:22 Antibiotics) telithromycin [From Ketek] Allergy Hives Verified 01/16/21 10:22 dust Allergy watery Uncoded 01/16/21 10:22 eyes, runny nose Home Medications: Home Meds Ketamine Hcl [Ketamine Nasal [place] Compound] 1 dose IN ASDIRECTED PRN 06/08/19 [History] Cholecalciferol (Vitamin D3) [Vitamin D] 5,000 tab DAILY 01/16/21 [History] ClonazePAM [KlonoPIN] 0.5 mg PO BID 01/16/21 [History] Naltrexone 2 mg PO BID 01/16/21 [History] Naltrexone 6.5 mg PO BEDTIME 01/16/21 [History] Pregabalin [Lyrica] 75 mg PO BID 01/16/21 [History] Sertraline [Zoloft] 75 mg PO DAILY 01/16/21 [History] Past Medical History HEENT History: Reports: Other (See Below) Other HEENT History: Wears glasses Cardiovascular History: Reports: None Respiratory History: Reports: Other (See Below) Other Respiratory History: mild seasonal asthma Gastrointestinal History: Reports: GERD Genitourinary History: Reports: Other (See Below) Other Genitourinary History: "floating rt kidney" FUR COMBER History: Reports: Endometriosis, Musculoskeletal History: Reports: Back Pain, Chronic, Fibromyalgia, Neck Pain, Chronic, Other (See Below) Other Musculoskeletal History: Degenerative disc disease, "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 Chronic pain syndrome. Neurological History: Reports: None Psychiatric History: Reports: Anxiety, Depression Endocrine/Metabolic History: Reports: None Hematologic History: Reports: None Immunologic History: Reports: None Oncologic (Cancer) History: Reports: None Dermatologic History: Reports: Psoriasis - Infectious Disease History Infectious Disease History: Reports: Chicken Pox - Past Surgical History Head Surgeries/Procedures: Reports: None HEENT Surgical History: Reports: Other (See Below) Other HEENT Surgeries/Procedures: Benign growth from throat Cardiovascular Surgical History: Reports: None Respiratory Surgical History: Reports: None GI Surgical History: Reports: Cholecystectomy, EGD Female Surgical History: Reports: Breast Implant, Endometrial Ablation, Hysterectomy, Other (See Below) Other Female Surgeries/Procedures: bartholin's cyst excision Endocrine Surgical History: Reports: None Neurological Surgical History: Reports: None Other Musculoskeletal Surgeries/Procedures:: 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 Social & Family History - Family History Family Medical History: Unobtainable - Caffeine Use Caffeine Use: Reports: Coffee - Recreational Drug Use Recreational Drug Use: No H&P Review of Systems - Review of Systems: Review Of Systems: See Below General: Reports: Weakness HEENT: Reports: Headaches Pulmonary: Reports: No Symptoms Cardiovascular: Reports: Palpitations Gastrointestinal: Reports: No Symptoms Genitourinary: Reports: Other Musculoskeletal: Reports: Neck Pain, Arm Pain, Back Pain Neurological: Reports: Headache, Gait Disturbance Exam - Exam Exam: See Below (see HPI) - Vital Signs Vital Signs: Last Vital Signs Temp 36.4 C 01/16/21 10:41 Pulse 67 01/16/21 12:47 Resp 18 01/16/21 10:41 BP 93/58 L 01/16/21 12:47 Pulse Ox 99 01/16/21 12:47 Weight: 56.699 kg - Patient Data Lab Results Last 24 hrs: Laboratory Results - last 24 hr 01/16/21 01/16/21 01/16/21 Range/Units 11:08 11:08 11:08 WBC 5.59 (4.0-11.0) K/uL RBC 4.76 (4.30-5.90) M/uL Hgb 14.6 (12.0-16.0) g/dL Hct 42.6 (36.0-46.0) % MCV 89.5 (80.0-98.0) fL MCH 30.7 (27.0-32.0) pg MCHC 34.3 (31.0-37.0) g/dL RDW Std Deviation 41.8 (28.0-62.0) fl RDW Coeff of Lizz 13 (11.0-15.0) % Plt Count 245 (150-400) K/uL MPV 10.20 (7.40-12.00) fL Neut % (Auto) 59.8 (48.0-80.0) % Lymph % (Auto) 28.1 (16.0-40.0) % [place] % (Auto) 8.1 (0.0-15.0) % Eos % (Auto) 3.6 (0.0-7.0) % Baso % (Auto) 0.4 (0.0-1.5) % Neut # (Auto) 3.4 (1.4-5.7) K/uL Lymph # (Auto) 1.6 (0.6-2.4) K/uL [place] # (Auto) 0.5 (0.0-0.8) K/uL Eos # (Auto) 0.2 (0.0-0.7) K/uL Baso # (Auto) 0.0 (0.0-0.1) K/uL Nucleated RBC % 0.0 /100WBC Nucleated RBCs # 0 K/uL Sodium 137 (136-145) mmol/L Potassium 3.8 (3.5-5.1) mmol/L Chloride 102 (98-107) mmol/L Carbon Dioxide 24.7 (21.0-32.0) mmol/L BUN 14 (7.0-18.0) mg/dL Creatinine 0.9 (0.6-1.0) mg/dL Est Cr Clr Drug Dosing 70.11 mL/min Estimated GFR (MDRD) > 60.0 ml/min Glucose 89 (74-106) mg/dL Calcium 8.8 (8.5-10.1) mg/dL Total Bilirubin 0.5 (0.2-1.0) mg/dL AST 13 L (15-37) IU/L ALT 18 (14-63) IU/L Alkaline Phosphatase 51 (46-116) U/L Total Protein 7.7 (6.4-8.2) g/dL Albumin 4.3 (3.4-5.0) g/dL Globulin 3.4 (2.6-4.0) g/dL Albumin/Globulin Ratio 1.3 (0.9-1.6) HCG, Qual NEGATIVE (NEG) Urine Color Urine Appearance Urine pH (5.0-8.0) Ur Specific [place] (1.001-1.035) Urine Protein (NEGATIVE) mg/dL Urine Glucose (UA) (NEGATIVE) mg/dL Urine Ketones (NEGATIVE) mg/dL Urine Occult Blood (NEGATIVE) Urine Nitrite (NEGATIVE) Urine Bilirubin (NEGATIVE) Urine Urobilinogen (<2.0) EU/dL Ur Leukocyte Esterase (NEGATIVE) Urine RBC (0-2/HPF) Urine WBC (0-5/HPF) Ur Epithelial Cells (NONE-FEW) Urine Bacteria (NEGATIVE) 01/16/21 Range/Units 11:13 WBC (4.0-11.0) K/uL RBC (4.30-5.90) M/uL Hgb (12.0-16.0) g/dL Hct (36.0-46.0) % MCV (80.0-98.0) fL MCH (27.0-32.0) pg MCHC (31.0-37.0) g/dL RDW Std Deviation (28.0-62.0) fl RDW Coeff of Lizz (11.0-15.0) % Plt Count (150-400) K/uL MPV (7.40-12.00) fL Neut % (Auto) (48.0-80.0) % Lymph % (Auto) (16.0-40.0) % [place] % (Auto) (0.0-15.0) % Eos % (Auto) (0.0-7.0) % Baso % (Auto) (0.0-1.5) % Neut # (Auto) (1.4-5.7) K/uL Lymph # (Auto) (0.6-2.4) K/uL [place] # (Auto) (0.0-0.8) K/uL Eos # (Auto) (0.0-0.7) K/uL Baso # (Auto) (0.0-0.1) K/uL Nucleated RBC % /100WBC Nucleated RBCs # K/uL Sodium (136-145) mmol/L Potassium (3.5-5.1) mmol/L Chloride (98-107) mmol/L Carbon Dioxide (21.0-32.0) mmol/L BUN (7.0-18.0) mg/dL Creatinine (0.6-1.0) mg/dL Est Cr Clr Drug Dosing mL/min Estimated GFR (MDRD) ml/min Glucose (74-106) mg/dL Calcium (8.5-10.1) mg/dL Total Bilirubin (0.2-1.0) mg/dL AST (15-37) IU/L ALT (14-63) IU/L Alkaline Phosphatase (46-116) U/L Total Protein (6.4-8.2) g/dL Albumin (3.4-5.0) g/dL Globulin (2.6-4.0) g/dL Albumin/Globulin Ratio (0.9-1.6) HCG, Qual (NEG) Urine Color YELLOW Urine Appearance CLEAR Urine pH 6.5 (5.0-8.0) Ur Specific [place] 1.015 (1.001-1.035) Urine Protein NEGATIVE (NEGATIVE) mg/dL Urine Glucose (UA) NEGATIVE (NEGATIVE) mg/dL Urine Ketones NEGATIVE (NEGATIVE) mg/dL Urine Occult Blood TRACE-INTACT H (NEGATIVE) Urine Nitrite NEGATIVE (NEGATIVE) Urine Bilirubin NEGATIVE (NEGATIVE) Urine Urobilinogen 0.2 (<2.0) EU/dL Ur Leukocyte Esterase NEGATIVE (NEGATIVE) Urine RBC 0-2 (0-2/HPF) Urine WBC 0-2 (0-5/HPF) Ur Epithelial Cells FEW (NONE-FEW) Urine Bacteria FEW (NEGATIVE) Result Diagrams: 01/16/21 11:08 01/16/21 11:08 Sepsis Event Note - Evaluation Sepsis Screening Result: No Definite Risk - Focused Exam Vital Signs: Vital Signs Temp Pulse Resp BP Pulse Ox 01/16/21 12:47 67 93/58 L 99 01/16/21 10:41 36.4 C 82 18 117/75 97 Consult PN Assessment/Plan Procedures: Procedures BLOOD TYPING SEROLOGIC ABO (07/06/18) BLOOD TYPING SEROLOGIC RH(D) (07/06/18) CHEST X-RAY 2VW FRONTAL&LATL (10/02/16) CHEST X-RAY SPECIAL VIEWS (10/02/16) CHORIONIC GONADOTROPIN ASSAY (07/06/18) COMPLETE CBC AUTOMATED (07/06/18) COMPLETE CBC W/AUTO DIFF WBC (06/08/19) COMPREHEN METABOLIC PANEL (06/08/19) CT HEAD/BRAIN W/O DYE (06/08/19) CULTR BACTERIA EXCEPT BLOOD (08/31/16) CULTURE AEROBIC IDENTIFY (08/31/16) CULTURE OTHR SPECIMN AEROBIC (08/31/16) CULTURE SCREEN ONLY (06/08/19) ELECTROCARDIOGRAM TRACING (10/02/16) EMERGENCY DEPT VISIT (06/08/19) EMERGENCY DEPT VISIT (10/02/16) GLYCOSYLATED HEMOGLOBIN TEST (03/24/20) HELICOBACTER PYLORI ANTIBODY (11/22/16) HEP B SURFACE ANTIBODY (10/29/14) HETEROPHILE ANTIBODY SCREEN (06/08/19) HIV-1/HIV-2 1 RESULT ANTBDY (10/29/14) HYDRATE IV INFUSION ADD-ON (06/08/19) INFLUENZA ASSAY W/OPTIC (01/09/20) LAPAROSCOPY EXCISE LESIONS (07/06/18) METABOLIC PANEL TOTAL CA (07/06/18) MICROBE SUSCEPTIBLE CINDI (08/31/16) MRI BRAIN STEM W/O & W/DYE (03/01/16) MRI CHEST SPINE W/O DYE (07/04/18) MRI JOINT UPR EXTREM W/O DYE (02/25/17) MRI LUMBAR SPINE W/O DYE (10/02/18) MRI NECK SPINE W/O DYE (07/04/18) RBC ANTIBODY SCREEN (07/06/18) RBC SED RATE AUTOMATED (03/24/20) ROUTINE VENIPUNCTURE (03/24/20) SARS-COV-2 COVID-19 AMP PRB (01/09/20) SMEAR WET [place] SALINE/INK (10/11/14) STREP A ASSAY W/OPTIC (06/08/19) THER/PROPH/DIAG INJ IV PUSH (06/08/19) THER/PROPH/DIAG INJ SC/IM (10/02/16) TISSUE EXAM BY PATHOLOGIST (07/06/18) TRANSVAGINAL US NON-OB (03/14/18) TX/PRO/DX INJ NEW DRUG ADDON (06/08/19) URINALYSIS AUTO W/SCOPE (06/08/19) US EXAM OF HEAD AND NECK (07/18/15) X-RAY EXAM CHEST 1 VIEW (06/08/19) X-RAY EXAM OF SHOULDER (01/11/17) (1) Gait abnormality SNOMED Code(s): 85813229 Code(s): R26.9 - UNSPECIFIED ABNORMALITIES OF GAIT AND MOBILITY Current Visit: Yes Problem List Initiated/Reviewed/Updated: Yes
--- NOTE | 2021-01-16 17:03 | PCM.HP.2 ---
<Michael Segura - Last Filed: 01/16/21 18:56> H&P History of Present Illness - General Date of Service: 01/16/21 Admit Problem/Dx: Admission Diagnosis/Problem Admission Diagnosis/Problem Weakness - History of Present Illness Initial Comments - Free Text/Narative: 40-year-old female with PMH of seasonal asthma, GERD, Back Pain, Chronic, Fibromyalgia, Neck Pain, Degenerative disc disease, syrinx, Chronic pain syndrome, admitted for ambulatory dysfunction. Patient presented to the ED earlier today with complaint of left lower leg weakness and instability. Patient states this morning she noticed that she was unable to bear weight on her left leg without feeling unsteady and she had to use a cane for balance. Patient states no concerns or difficulty with walking last night. Patient de nies any pain or sensation changes in either leg. Patient denies any recent history of fever, chills or any infectious process. Patient denies difficulty with urinating, bowel dysfunction, denies any recent history of trauma or falls injuring her legs or her lower back. Patient did state however that beginning this past Tuesday she noticed it erratic heart rates ranging between 40 to the 100s. Patient states that she does have some cardiac history including "vagus nerve damage" which causes her to get dizzy at times and pass out. She has seen Dr. Mcnamara, cardiology, at [facility] in [place]. Patient states she is not given a specific diagnosis and was never treated with any medications. Patient denies any loss or retention of bowel bladder function or saddle anesthesia. On admission patient denies fever, chills, abdominal pain, nausea, vomiting, shortness of breath, chest pain, dizziness, lightheadedness, blurry vision, syncopal episode, urinary retention, no new rashes or lesions noted. Dr. Laguerre, neurology, was consulted and visited with the patient in the ED. Recommendation was to admit the patient for observation and physical therapy to assess ambulatory dysfunction and/or further imaging if available. Back Pain Score (Numeric/FACES): 5 - Related Data Allergies/Adverse Reactions: Allergies Allergy/AdvReac Type Severity Reaction Status Date / Time avocado Allergy Itching Verified 01/16/21 18:11 banana Allergy Itching Verified 01/16/21 18:11 capsaicin Allergy Hives Verified 01/16/21 18:11 latex Allergy Rash Verified 01/16/21 18:11 pomegranate Allergy Itching Verified 01/16/21 18:11 shellfish derived Allergy tongue Verified 01/16/21 18:11 swelling, throat tightness Sulfa (Sulfonamide Allergy Rash Verified 01/16/21 18:11 Antibiotics) telithromycin [From Ketek] Allergy Hives Verified 01/16/21 18:11 dust Allergy watery Uncoded 01/16/21 18:11 eyes, runny nose Home Medications: Home Meds Ketamine Hcl [Ketamine Nasal Waterproof Compound] 1 dose IN ASDIRECTED PRN 06/08/19 [History] Cholecalciferol (Vitamin D3) [Vitamin D] 5,000 tab DAILY 01/16/21 [History] ClonazePAM [KlonoPIN] 0.5 mg PO BID PRN 01/16/21 [History] Naltrexone 2 mg PO BID 01/16/21 [History] Naltrexone 6.5 mg PO BEDTIME 01/16/21 [History] Pregabalin [Lyrica] 75 mg PO BID 01/16/21 [History] Sertraline [Zoloft] 75 mg PO DAILY 01/16/21 [History] Past Medical History HEENT History: Reports: Other (See Below) Other HEENT History: Wears glasses Cardiovascular History: Reports: None Respiratory History: Reports: Other (See Below) Other Respiratory History: mild seasonal asthma Gastrointestinal History: Reports: GERD Genitourinary History: Reports: Other (See Below) Other Genitourinary History: "floating rt kidney" [employer] History: Reports: Endometriosis, Musculoskeletal History: Reports: Back Pain, Chronic, Fibromyalgia, Neck Pain, Chronic, Other (See Below) Other Musculoskeletal History: Degenerative disc disease, "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 Chronic pain syndrome. Neurological History: Reports: None Psychiatric History: Reports: Anxiety, Depression Endocrine/Metabolic History: Reports: None Hematologic History: Reports: None Immunologic History: Reports: None Oncologic (Cancer) History: Reports: None Dermatologic History: Reports: Psoriasis - Infectious Disease History Infectious Disease History: Reports: Chicken Pox - Past Surgical History Head Surgeries/Procedures: Reports: None HEENT Surgical History: Reports: Other (See Below) Other HEENT Surgeries/Procedures: Benign growth from throat Cardiovascular Surgical History: Reports: None Respiratory Surgical History: Reports: None GI Surgical History: Reports: Cholecystectomy, EGD Female Surgical History: Reports: Breast Implant, Endometrial Ablation, Hysterectomy, Other (See Below) Other Female Surgeries/Procedures: bartholin's cyst excision Endocrine Surgical History: Reports: None Neurological Surgical History: Reports: None Other Musculoskeletal Surgeries/Procedures:: 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 Denies: Fever, Chills, Decreased Appetite Pulmonary: Denies: Shortness of Breath, Wheezing, Cough Cardiovascular: Denies: Chest Pain, Palpitations, Dyspnea on Exertion, Edema, Lightheadedness Gastrointestinal: Denies: Abdominal Pain Musculoskeletal: Reports: Back Pain (upper back ). Denies: Leg Pain, Foot Pain Psychiatric: Denies: Confusion, Depression Neurological: Reports: Difficulty Walking, Weakness. Denies: Confusion, Dizziness, Headache, Trouble Speaking Exam - Exam Exam: See Below - Vital Signs Vital Signs: Last Vital Signs Temp 97.6 F 01/16/21 10:41 Pulse 67 01/16/21 12:47 Resp 18 01/16/21 10:41 BP 93/58 L 01/16/21 12:47 Pulse Ox 99 01/16/21 12:47 Weight: 56.699 kg - Exam General: Alert, Oriented HEENT: Conjunctiva Clear, EOMI Lungs: Clear to Auscultation, Normal Respiratory Effort Cardiovascular: Regular Rate, Regular Rhythm GI/Abdominal Exam: Normal Bowel Sounds, Soft, Non-Tender Back Exam: Normal Inspection Extremities: No Pedal Edema Neuro Extensive - Mental Status: Alert, Oriented x3, Normal Mood/Affect Neuro Extensive - Motor, Sensory, Reflexes: Abnormal Gait, Abnormal Reflexes Psychiatric: Alert - Patient Data Lab Results Last 24 hrs: Laboratory Results - last 24 hr 01/16/21 01/16/21 01/16/21 Range/Units 11:08 11:08 11:08 WBC 5.59 (4.0-11.0) K/uL RBC 4.76 (4.30-5.90) M/uL Hgb 14.6 (12.0-16.0) g/dL Hct 42.6 (36.0-46.0) % MCV 89.5 (80.0-98.0) fL MCH 30.7 (27.0-32.0) pg MCHC 34.3 (31.0-37.0) g/dL RDW Std Deviation 41.8 (28.0-62.0) fl RDW Coeff of Lizz 13 (11.0-15.0) % Plt Count 245 (150-400) K/uL MPV 10.20 (7.40-12.00) fL Neut % (Auto) 59.8 (48.0-80.0) % Lymph % (Auto) 28.1 (16.0-40.0) % [place] % (Auto) 8.1 (0.0-15.0) % Eos % (Auto) 3.6 (0.0-7.0) % Baso % (Auto) 0.4 (0.0-1.5) % Neut # (Auto) 3.4 (1.4-5.7) K/uL Lymph # (Auto) 1.6 (0.6-2.4) K/uL [place] # (Auto) 0.5 (0.0-0.8) K/uL Eos # (Auto) 0.2 (0.0-0.7) K/uL Baso # (Auto) 0.0 (0.0-0.1) K/uL Nucleated RBC % 0.0 /100WBC Nucleated RBCs # 0 K/uL Sodium 137 (136-145) mmol/L Potassium 3.8 (3.5-5.1) mmol/L Chloride 102 (98-107) mmol/L Carbon Dioxide 24.7 (21.0-32.0) mmol/L BUN 14 (7.0-18.0) mg/dL Creatinine 0.9 (0.6-1.0) mg/dL Est Cr Clr Drug Dosing 70.11 mL/min Estimated GFR (MDRD) > 60.0 ml/min Glucose 89 (74-106) mg/dL Calcium 8.8 (8.5-10.1) mg/dL Total Bilirubin 0.5 (0.2-1.0) mg/dL AST 13 L (15-37) IU/L ALT 18 (14-63) IU/L Alkaline Phosphatase 51 (46-116) U/L Total Protein 7.7 (6.4-8.2) g/dL Albumin 4.3 (3.4-5.0) g/dL Globulin 3.4 (2.6-4.0) g/dL Albumin/Globulin Ratio 1.3 (0.9-1.6) HCG, Qual NEGATIVE (NEG) Urine Color Urine Appearance Urine pH (5.0-8.0) Ur Specific [place] (1.001-1.035) Urine Protein (NEGATIVE) mg/dL Urine Glucose (UA) (NEGATIVE) mg/dL Urine Ketones (NEGATIVE) mg/dL Urine Occult Blood (NEGATIVE) Urine Nitrite (NEGATIVE) Urine Bilirubin (NEGATIVE) Urine Urobilinogen (<2.0) EU/dL Ur Leukocyte Esterase (NEGATIVE) Urine RBC (0-2/HPF) Urine WBC (0-5/HPF) Ur Epithelial Cells (NONE-FEW) Urine Bacteria (NEGATIVE) 01/16/21 Range/Units 11:13 WBC (4.0-11.0) K/uL RBC (4.30-5.90) M/uL Hgb (12.0-16.0) g/dL Hct (36.0-46.0) % MCV (80.0-98.0) fL MCH (27.0-32.0) pg MCHC (31.0-37.0) g/dL RDW Std Deviation (28.0-62.0) fl RDW Coeff of Lizz (11.0-15.0) % Plt Count (150-400) K/uL MPV (7.40-12.00) fL Neut % (Auto) (48.0-80.0) % Lymph % (Auto) (16.0-40.0) % [place] % (Auto) (0.0-15.0) % Eos % (Auto) (0.0-7.0) % Baso % (Auto) (0.0-1.5) % Neut # (Auto) (1.4-5.7) K/uL Lymph # (Auto) (0.6-2.4) K/uL [place] # (Auto) (0.0-0.8) K/uL Eos # (Auto) (0.0-0.7) K/uL Baso # (Auto) (0.0-0.1) K/uL Nucleated RBC % /100WBC Nucleated RBCs # K/uL Sodium (136-145) mmol/L Potassium (3.5-5.1) mmol/L Chloride (98-107) mmol/L Carbon Dioxide (21.0-32.0) mmol/L BUN (7.0-18.0) mg/dL Creatinine (0.6-1.0) mg/dL Est Cr Clr Drug Dosing mL/min Estimated GFR (MDRD) ml/min Glucose (74-106) mg/dL Calcium (8.5-10.1) mg/dL Total Bilirubin (0.2-1.0) mg/dL AST (15-37) IU/L ALT (14-63) IU/L Alkaline Phosphatase (46-116) U/L Total Protein (6.4-8.2) g/dL Albumin (3.4-5.0) g/dL Globulin (2.6-4.0) g/dL Albumin/Globulin Ratio (0.9-1.6) HCG, Qual (NEG) Urine Color YELLOW Urine Appearance CLEAR Urine pH 6.5 (5.0-8.0) Ur Specific [place] 1.015 (1.001-1.035) Urine Protein NEGATIVE (NEGATIVE) mg/dL Urine Glucose (UA) NEGATIVE (NEGATIVE) mg/dL Urine Ketones NEGATIVE (NEGATIVE) mg/dL Urine Occult Blood TRACE-INTACT H (NEGATIVE) Urine Nitrite NEGATIVE (NEGATIVE) Urine Bilirubin NEGATIVE (NEGATIVE) Urine Urobilinogen 0.2 (<2.0) EU/dL Ur Leukocyte Esterase NEGATIVE (NEGATIVE) Urine RBC 0-2 (0-2/HPF) Urine WBC 0-2 (0-5/HPF) Ur Epithelial Cells FEW (NONE-FEW) Urine Bacteria FEW (NEGATIVE) Result Diagrams: 01/16/21 11:08 01/16/21 11:08 Sepsis Event Note - Evaluation Sepsis Screening Result: No Definite Risk - Focused Exam Vital Signs: Vital Signs Temp Pulse Resp BP Pulse Ox 01/16/21 12:47 67 93/58 L 99 01/16/21 10:41 97.6 F 82 18 117/75 97 - Problem List (1) Orthostatic dizziness SNOMED Code(s): 605019337 ICD Code: R42 - DIZZINESS AND GIDDINESS Status: Acute Current Visit: Yes (2) Bilateral leg weakness SNOMED Code(s): 3621481 ICD Code: R29.898 - OTH SYMPTOMS AND SIGNS INVOLVING THE MUSCULOSKELETAL SYSTEM Status: Acute Current Visit: Yes (3) Gait abnormality SNOMED Code(s): 70264129 ICD Code: R26.9 - UNSPECIFIED ABNORMALITIES OF GAIT AND MOBILITY Status: Acute Current Visit: Yes (4) Risk for falls SNOMED Code(s): 136056357 ICD Code: Z91.81 - HISTORY OF FALLING Status: Acute Current Visit: Yes (5) Unable to ambulate SNOMED Code(s): 894816934 ICD Code: R26.2 - DIFFICULTY IN WALKING, NOT ELSEWHERE CLASSIFIED Status: Acute Current Visit: Yes (6) Thoracic back pain SNOMED Code(s): 792502439 ICD Code: M54.6 - PAIN IN THORACIC SPINE Status: Acute Current Visit: No Qualifiers: Chronicity: unspecified Back pain laterality: midline Qualified Code(s): M54.6 - Pain in thoracic spine Problem List Initiated/Reviewed/Updated: Yes Orders Last 24hrs: Active Orders 24 hr Category Date Time Status Admission Status [Patient Status] [ADT] Stat ADT 01/16/21 16:27 Active EKG Documentation Completion [RC] STAT Care 01/16/21 10:56 Active Notify Provider Consults [RC] ASDIRECTED Care 01/16/21 15:21 Active Consult to Physician [CONS] Stat Cons 01/16/21 15:21 Active COVID-19/FLU A+B [MOLEC] Stat Lab 01/16/21 16:32 Received Sodium Chloride 0.9% [Saline Flush] Med 01/16/21 10:56 Active 10 ml FLUSH ASDIRECTED PRN Sodium Chloride 0.9% [Saline Flush] Med 01/16/21 10:56 Active 2.5 ml FLUSH ASDIRECTED PRN Saline Lock Insert [OM.PC] Stat Oth 01/16/21 10:56 Ordered Medication Orders Sodium Chloride (Sodium Chloride 0.9% 10 Ml Syringe) 10 ml FLUSH ASDIRECTED PRN PRN Reason: Keep Vein Open Last Admin: 01/16/21 11:15 Dose: 10 ml Documented by: KARUNA Sodium Chloride (Sodium Chloride 0.9% 2.5 Ml Syringe) 2.5 ml FLUSH ASDIRECTED PRN PRN Reason: Keep Vein Open Last Admin: 01/16/21 11:14 Dose: 2.5 ml Documented by: KARUNA Assessment/Plan Comment:: Ambulatory dysfunction- Current cause of ambulatory dysfunction unknown. Differential diagnosis to include neuromuscular disease vs. gait dysfunction secondary to generalized weakness vs.conversion disorder. Thoracic and lumbar MRIs not supportive of any neurological cause of patient's ambulatory dysfunction. Brain and neck MRI could not be ascertained due to MRI imaging not available at this time. Patient admitted inpatient status for supportive care and physical therapy to assess dysfunction. Will wait for PT recommendation to determine further care to include strengthening exercises and/or assisted walking devices. Dr. Laguerre, neurology, consulted and does not recommend transfer of the patient at this time. Will monitor patient and reassess if transfer is warranted in the future. Telemetry for history of orthostatic hypotension, dizziness, vasovagal syncope. Regular Diet <Anatoliy,Hooria - Last Filed: 01/16/21 23:02> H&P History of Present Illness - General Admit Problem/Dx: Admission Diagnosis/Problem Admission Diagnosis/Problem Weakness - History of Present Illness Initial Comments - Free Text/Narative: I performed a history and physical exam of the patient and discussed management with resident. I have reviewed the residents note and agree with documented findings and plan unless otherwise specified in my note. Exam - Vital Signs Vital Signs: Last Vital Signs Temp 36.8 C 01/16/21 20:00 Pulse 69 01/16/21 20:00 Resp 15 01/16/21 20:00 BP 105/61 01/16/21 20:00 Pulse Ox 97 01/16/21 20:00 - Patient Data Lab Results Last 24 hrs: Laboratory Results - last 24 hr 01/16/21 01/16/21 01/16/21 Range/Units 11:08 11:08 11:08 WBC 5.59 (4.0-11.0) K/uL RBC 4.76 (4.30-5.90) M/uL Hgb 14.6 (12.0-16.0) g/dL Hct 42.6 (36.0-46.0) % MCV 89.5 (80.0-98.0) fL MCH 30.7 (27.0-32.0) pg MCHC 34.3 (31.0-37.0) g/dL RDW Std Deviation 41.8 (28.0-62.0) fl RDW Coeff of Lizz 13 (11.0-15.0) % Plt Count 245 (150-400) K/uL MPV 10.20 (7.40-12.00) fL Neut % (Auto) 59.8 (48.0-80.0) % Lymph % (Auto) 28.1 (16.0-40.0) % [place] % (Auto) 8.1 (0.0-15.0) % Eos % (Auto) 3.6 (0.0-7.0) % Baso % (Auto) 0.4 (0.0-1.5) % Neut # (Auto) 3.4 (1.4-5.7) K/uL Lymph # (Auto) 1.6 (0.6-2.4) K/uL [place] # (Auto) 0.5 (0.0-0.8) K/uL Eos # (Auto) 0.2 (0.0-0.7) K/uL Baso # (Auto) 0.0 (0.0-0.1) K/uL Nucleated RBC % 0.0 /100WBC Nucleated RBCs # 0 K/uL Sodium 137 (136-145) mmol/L Potassium 3.8 (3.5-5.1) mmol/L Chloride 102 (98-107) mmol/L Carbon Dioxide 24.7 (21.0-32.0) mmol/L BUN 14 (7.0-18.0) mg/dL Creatinine 0.9 (0.6-1.0) mg/dL Est Cr Clr Drug Dosing 70.11 mL/min Estimated GFR (MDRD) > 60.0 ml/min Glucose 89 (74-106) mg/dL Calcium 8.8 (8.5-10.1) mg/dL Phosphorus (2.6-4.7) mg/dL Magnesium (1.8-2.4) mg/dL Total Bilirubin 0.5 (0.2-1.0) mg/dL AST 13 L (15-37) IU/L ALT 18 (14-63) IU/L Alkaline Phosphatase 51 (46-116) U/L Troponin I (0.000-0.056) ng/mL Total Protein 7.7 (6.4-8.2) g/dL Albumin 4.3 (3.4-5.0) g/dL Globulin 3.4 (2.6-4.0) g/dL Albumin/Globulin Ratio 1.3 (0.9-1.6) HCG, Qual NEGATIVE (NEG) Urine Color Urine Appearance Urine pH (5.0-8.0) Ur Specific [place] (1.001-1.035) Urine Protein (NEGATIVE) mg/dL Urine Glucose (UA) (NEGATIVE) mg/dL Urine Ketones (NEGATIVE) mg/dL Urine Occult Blood (NEGATIVE) Urine Nitrite (NEGATIVE) Urine Bilirubin (NEGATIVE) Urine Urobilinogen (<2.0) EU/dL Ur Leukocyte Esterase (NEGATIVE) Urine RBC (0-2/HPF) Urine WBC (0-5/HPF) Ur Epithelial Cells (NONE-FEW) Urine Bacteria (NEGATIVE) Influenza Type A RNA (NEGATIVE) Influenza Type B RNA (NEGATIVE) SARS-CoV-2 RNA (KARMA) (NEGATIVE) 01/16/21 01/16/21 01/16/21 Range/Units 11:08 11:13 16:32 WBC (4.0-11.0) K/uL RBC (4.30-5.90) M/uL Hgb (12.0-16.0) g/dL Hct (36.0-46.0) % MCV (80.0-98.0) fL MCH (27.0-32.0) pg MCHC (31.0-37.0) g/dL RDW Std Deviation (28.0-62.0) fl RDW Coeff of Lizz (11.0-15.0) % Plt Count (150-400) K/uL MPV (7.40-12.00) fL Neut % (Auto) (48.0-80.0) % Lymph % (Auto) (16.0-40.0) % [place] % (Auto) (0.0-15.0) % Eos % (Auto) (0.0-7.0) % Baso % (Auto) (0.0-1.5) % Neut # (Auto) (1.4-5.7) K/uL Lymph # (Auto) (0.6-2.4) K/uL [place] # (Auto) (0.0-0.8) K/uL Eos # (Auto) (0.0-0.7) K/uL Baso # (Auto) (0.0-0.1) K/uL Nucleated RBC % /100WBC Nucleated RBCs # K/uL Sodium (136-145) mmol/L Potassium (3.5-5.1) mmol/L Chloride (98-107) mmol/L Carbon Dioxide (21.0-32.0) mmol/L BUN (7.0-18.0) mg/dL Creatinine (0.6-1.0) mg/dL Est Cr Clr Drug Dosing mL/min Estimated GFR (MDRD) ml/min Glucose (74-106) mg/dL Calcium (8.5-10.1) mg/dL Phosphorus 3.8 (2.6-4.7) mg/dL Magnesium 2.5 H (1.8-2.4) mg/dL Total Bilirubin (0.2-1.0) mg/dL AST (15-37) IU/L ALT (14-63) IU/L Alkaline Phosphatase (46-116) U/L Troponin I < 0.050 (0.000-0.056) ng/mL Total Protein (6.4-8.2) g/dL Albumin (3.4-5.0) g/dL Globulin (2.6-4.0) g/dL Albumin/Globulin Ratio (0.9-1.6) HCG, Qual (NEG) Urine Color YELLOW Urine Appearance CLEAR Urine pH 6.5 (5.0-8.0) Ur Specific [place] 1.015 (1.001-1.035) Urine Protein NEGATIVE (NEGATIVE) mg/dL Urine Glucose (UA) NEGATIVE (NEGATIVE) mg/dL Urine Ketones NEGATIVE (NEGATIVE) mg/dL Urine Occult Blood TRACE-INTACT H (NEGATIVE) Urine Nitrite NEGATIVE (NEGATIVE) Urine Bilirubin NEGATIVE (NEGATIVE) Urine Urobilinogen 0.2 (<2.0) EU/dL Ur Leukocyte Esterase NEGATIVE (NEGATIVE) Urine RBC 0-2 (0-2/HPF) Urine WBC 0-2 (0-5/HPF) Ur Epithelial Cells FEW (NONE-FEW) Urine Bacteria FEW (NEGATIVE) Influenza Type A RNA NEGATIVE (NEGATIVE) Influenza Type B RNA NEGATIVE (NEGATIVE) SARS-CoV-2 RNA (KARMA) NEGATIVE (NEGATIVE) Result Diagrams: 01/16/21 11:08 01/16/21 11:08 Sepsis Event Note - Focused Exam Vital Signs: Vital Signs Temp Pulse Resp BP Pulse Ox 01/16/21 20:00 36.8 C 69 15 105/61 97 01/16/21 18:00 37.2 C 80 16 112/62 97 01/16/21 12:47 67 93/58 L 99 Orders Last 24hrs: Active Orders 24 hr Category Date Time Status Admission Status [Patient Status] [ADT] Stat ADT 01/16/21 16:27 Active Notify Provider Consults [RC] ASDIRECTED Care 01/16/21 15:21 Active Oxygen Therapy [RC] PRN Care 01/16/21 18:54 Active Telemetry Monitoring [Cardiac Monitoring] [RC] Q8H Care 01/16/21 19:10 Active VTE/DVT Education [RC] PER UNIT ROUTINE Care 01/16/21 18:54 Active Vital Signs [RC] Q4H Care 01/16/21 18:54 Active Consult to Physical Therapy [PT Evaluation and Cons 01/16/21 17:04 Active Treatment] [CONS] Routine Consult to Physician [CONS] Stat Cons 01/16/21 15:21 Active Regular Diet [DIET] Diet 01/16/21 Breakfast Active ClonazePAM [KlonoPIN] Med 01/16/21 19:11 Active 0.5 mg PO BID PRN Ketamine Hcl [Ketamine Nasal Waterproof Compound] Med 01/16/21 19:11 Pending 1 dose INH ASDIRECTED PRN Naltrexone Med 01/16/21 21:00 Pending 2 mg PO BID Naltrexone Med 01/16/21 21:00 Pending 6.5 mg PO BEDTIME Pregabalin [Lyrica] Med 01/16/21 21:00 Active 75 mg PO BID Sertraline [Zoloft] Med 01/17/21 09:00 Active 75 mg PO DAILY Sodium Chloride 0.9% [Saline Flush] Med 01/16/21 10:56 Active 10 ml FLUSH ASDIRECTED PRN Sodium Chloride 0.9% [Saline Flush] Med 01/16/21 10:56 Active 2.5 ml FLUSH ASDIRECTED PRN Saline Lock Insert [OM.PC] Stat Oth 01/16/21 10:56 Ordered Resuscitation Status Routine Resus Stat 01/16/21 18:54 Ordered Medication Orders Clonazepam (Clonazepam 0.5 Mg Tab) 0.5 mg PO BID PRN PRN Reason: Anxiety Ketamine Hcl [ Ketamine Nasal Waterproof Compound] 30 Ml Bottle 1 dose INH ASDIRECTED PRN PRN Reason: severe pain Naltrexone 50 Mg (Tablet) 2 mg PO BID LEONID (Naltrexone 50 Mg (Tablet)) 6.5 mg PO BEDTIME LEONID Pregabalin (Pregabalin 75 Mg Cap) 75 mg PO BID LEONID Last Admin: 01/16/21 21:14 Dose: 75 mg Documented by: HERSON Sertraline HCl (Sertraline 25 Mg Tab) 75 mg PO DAILY LEONID Sodium Chloride (Sodium Chloride 0.9% 10 Ml Syringe) 10 ml FLUSH ASDIRECTED PRN PRN Reason: Keep Vein Open Last Admin: 01/16/21 11:15 Dose: 10 ml Documented by: KARUNA Sodium Chloride (Sodium Chloride 0.9% 2.5 Ml Syringe) 2.5 ml FLUSH ASDIRECTED PRN PRN Reason: Keep Vein Open Last Admin: 01/16/21 11:14 Dose: 2.5 ml Documented by: KARUNA
[2021-01-16 17:13] LABS: CORONAVIRUS COVID-19 NAA NEGATIVE (NEGATIVE); INFLUENZA A NAA NEGATIVE (NEGATIVE); INFLUENZA B NAA NEGATIVE (NEGATIVE)
[2021-01-16] MEDS ORDERED: KETAMINE HCL INH PRN (19:11)
[2021-01-16] MEDS ORDERED: ClonazePAM 0.5 MG Tab PO PRN (19:11)
[2021-01-16] MEDS ORDERED: NALTREXONE 50 MG PO SCH (21:00)
[2021-01-16] MEDS: Pregabalin 75 MG Cap PO SCH (21:14)
[2021-01-16] MEDS: KETAMINE 50 MG/ML INH PRN (23:32)
[2021-01-17] MEDS: Ketorolac 15 MG/ML SDV IVPUSH PRN ×4 (01:11→18:44)
[2021-01-17] MEDS: Sertraline 25 MG Tab PO SCH (08:04)
[2021-01-17] MEDS: Pregabalin 75 MG Cap PO SCH ×2 (08:05→20:37)
[2021-01-17] MEDS ORDERED: NALTREXONE PO SCH (09:00)
[2021-01-17] MEDS: KETAMINE 50 MG/ML INH PRN ×2 (09:37→22:27)
--- NOTE | 2021-01-17 14:11 | PCM.PN ---
<Michael Segura - Last Filed: 01/17/21 14:06> - General Info Date of Service: 01/17/21 Subjective Update: Patient states she feels roughly the same as yesterday. Patient denies any increase in lower extremity weakness. Patient eager to work with physical therapy for further recommendations. Patient denies fever, chills, nausea, vomiting, abdominal pain, headaches, dizziness, chest pain, shortness of breath - Review of Systems General: Denies: Fever, Chills Pulmonary: Denies: Shortness of Breath, Cough Cardiovascular: Denies: Chest Pain, Palpitations Gastrointestinal: Denies: Abdominal Pain, Nausea, Vomiting Neurological: Denies: Confusion, Dizziness Psychiatric: Denies: Confusion - Patient Data Vitals - Most Recent: Last Vital Signs Temp 98 F 01/17/21 11:00 Pulse 70 01/17/21 11:00 Resp 14 01/17/21 11:00 BP 112/69 01/17/21 11:00 Pulse Ox 97 01/17/21 11:00 Weight - Most Recent: 56.699 kg I&O - Last 24 Hours: Intake & Output 01/16/21 01/17/21 01/17/21 22:59 06:59 14:59 Intake Total 700 Output Total 200 Balance 500 Lab Results Last 24 Hours: Laboratory Results - last 24 hr 01/16/21 01/16/21 01/16/21 Range/Units 11:08 11:08 16:32 Phosphorus 3.8 (2.6-4.7) mg/dL Magnesium 2.5 H (1.8-2.4) mg/dL Creatine Kinase 67 (26-308) U/L Troponin I < 0.050 (0.000-0.056) ng/mL Vitamin B12 807 (193-986) pg/mL Influenza Type A RNA NEGATIVE (NEGATIVE) Influenza Type B RNA NEGATIVE (NEGATIVE) SARS-CoV-2 RNA ([facility]) NEGATIVE (NEGATIVE) Med Orders - Current: Current Medications Ketorolac Tromethamine (Ketorolac 15 Mg/Ml Sdv) 15 mg IVPUSH Q6H PRN PRN Reason: Pain Stop: 01/22/21 00:59 Last Admin: 01/17/21 13:03 Dose: 15 mg Documented by: Lorazepam (Lorazepam 2 Mg/Ml Sdv) 0.5 mg IVPUSH Q4H PRN PRN Reason: Anxiety Ketamine 50 Mg/Ml Nasal [place] Own Med 0 dose INH BID PRN PRN Reason: severe pain Last Admin: 01/17/21 09:37 Dose: 1 dose Documented by: Naltrexone 2 Mg (Tablet Own Med) 0 each PO 0900,1400 [facility] Naltrexone 6.5 Mg (Tablet) 1 each PO BEDTIME [facility] Lidocaine 2.5%/ (Prilocaine 2.5%) 1 each TOP BID PRN PRN Reason: ASDIRECTED Diclofenac Sodium (100 Gm Tube) 1 each TOP QID PRN PRN Reason: Pain (mild 1-3) Pregabalin (Pregabalin 75 Mg Cap) 75 mg PO BID [facility] Last Admin: 01/17/21 08:05 Dose: 75 mg Documented by: Sertraline HCl (Sertraline 25 Mg Tab) 75 mg PO DAILY [facility] Last Admin: 01/17/21 08:04 Dose: 75 mg Documented by: Sodium Chloride (Sodium Chloride 0.9% 10 Ml Syringe) 10 ml FLUSH ASDIRECTED PRN PRN Reason: Keep Vein Open Last Admin: 01/16/21 11:15 Dose: 10 ml Documented by: Sodium Chloride (Sodium Chloride 0.9% 2.5 Ml Syringe) 2.5 ml FLUSH ASDIRECTED PRN PRN Reason: Keep Vein Open Last Admin: 01/16/21 11:14 Dose: 2.5 ml Documented by: Discontinued Medications Clonazepam (Clonazepam 0.5 Mg Tab) 0.5 mg PO BID PRN PRN Reason: Anxiety Last Admin: 01/17/21 12:12 Dose: 0.25 mg Documented by: Gadobenate Dimeglumine (Gadobenate Dimeglumine 529 Mg/Ml 20 Ml Sdv) 20 ml IVPUSH ONETIME STA Stop: 01/16/21 13:40 Last Admin: 01/16/21 13:40 Dose: 12 ml Documented by: Naltrexone 2 Mg (Tablet) 1 each PO BID [facility] Last Admin: 01/17/21 09:37 Dose: 1 each Documented by: - Exam General: Alert, Oriented Lungs: Clear to Auscultation, Normal Respiratory Effort Cardiovascular: Regular Rate, Regular Rhythm GI/Abdominal Exam: Normal Bowel Sounds, Soft, Non-Tender Extremities: No Pedal Edema. No: Normal Range of Motion (LLE fasciculations with movement), Leg Pain Neurological: Normal Speech. No: Strength Equal Bilateral, Reflexes Equal Bilateral Psy/Mental Status: Alert - Patient Data Lab Results Last 24 hrs: Laboratory Results - last 24 hr 01/16/21 01/16/21 01/16/21 Range/Units 11:08 11:08 16:32 Phosphorus 3.8 (2.6-4.7) mg/dL Magnesium 2.5 H (1.8-2.4) mg/dL Creatine Kinase 67 (26-308) U/L Troponin I < 0.050 (0.000-0.056) ng/mL Vitamin B12 807 (193-986) pg/mL Influenza Type A RNA NEGATIVE (NEGATIVE) Influenza Type B RNA NEGATIVE (NEGATIVE) SARS-CoV-2 RNA ([facility]) NEGATIVE (NEGATIVE) Result Diagrams: 01/16/21 11:08 01/16/21 11:08 Sepsis Event Note - Evaluation Sepsis Screening Result: No Definite Risk - Focused Exam Vital Signs: Vital Signs Temp Pulse Resp BP Pulse Ox 01/17/21 11:00 98 F 70 14 112/69 97 01/17/21 07:20 97.4 F 73 16 97/52 L 99 01/17/21 04:10 96.9 F 78 14 97/51 L 99 - Problem List & Annotations (1) Orthostatic dizziness SNOMED Code(s): 520594893 Code(s): R42 - DIZZINESS AND GIDDINESS Status: Acute Current Visit: Yes (2) Bilateral leg weakness SNOMED Code(s): 1964072 Code(s): R29.898 - OTH SYMPTOMS AND SIGNS INVOLVING THE MUSCULOSKELETAL SYSTEM Status: Acute Current Visit: Yes (3) Gait abnormality SNOMED Code(s): 97556022 Code(s): R26.9 - UNSPECIFIED ABNORMALITIES OF GAIT AND MOBILITY Status: Acute Current Visit: Yes (4) Risk for falls SNOMED Code(s): 829805865 Code(s): Z91.81 - HISTORY OF FALLING Status: Acute Current Visit: Yes (5) Unable to ambulate SNOMED Code(s): 247874467 Code(s): R26.2 - DIFFICULTY IN WALKING, NOT ELSEWHERE CLASSIFIED Status: Acute Current Visit: Yes (6) Thoracic back pain SNOMED Code(s): 055621495 Code(s): M54.6 - PAIN IN THORACIC SPINE Status: Acute Current Visit: No Qualifiers: Chronicity: unspecified Back pain laterality: midline Qualified Code(s): M54.6 - Pain in thoracic spine - Problem List Review Problem List Initiated/Reviewed/Updated: Yes - My Orders Last 24 Hours: My Active Orders 01/16/21 17:04 Consult to Physical Therapy [PT Evaluation and Treatment] [CONS] Routine 01/16/21 18:54 Oxygen Therapy [RC] PRN VTE/DVT Education [RC] PER UNIT ROUTINE Vital Signs [RC] Q4H Resuscitation Status Routine 01/16/21 19:10 Telemetry Monitoring [Cardiac Monitoring] [RC] Q8H 01/16/21 21:00 Pregabalin [Lyrica] 75 mg PO BID 01/16/21 23:22 Ketamine Hcl [Ketamine Nasal [place] Compound] 0 dose INH BID PRN 01/17/21 09:00 Sertraline [Zoloft] 75 mg PO DAILY 01/17/21 10:59 Patient's Own Medication [Ptom] 1 each TOP QID PRN 01/17/21 12:15 LORazepam [Ativan] 0.5 mg IVPUSH Q4H PRN 01/17/21 14:15 Non-Formulary Medication [NF Drug] 0 each PO 0900,1400 01/17/21 21:00 Patient's Own Medication [Ptom] 1 each PO BEDTIME - Plan Plan:: Ambulatory dysfunction- Current cause of ambulatory dysfunction unknown. Differential diagnosis to include neuromuscular disease vs. gait dysfunction secondary to generalized weakness vs.conversion disorder. Thoracic and lumbar MRIs not supportive of any neurological cause of patient's ambulatory dysfunction. Brain and neck MRI could not be ascertained due to MRI imaging not available at this time. Patient admitted inpatient status for supportive care and physical therapy to assess dysfunction. Dr. Laguerre, neurology, consulted and does not recommend transfer of the patient at this time. Will monitor patient and reassess if transfer is warranted in the future. Physical therapy evaluation 01-11-21, patient unable to maintain active muscle contraction of the left lower extremity, with decreased quad mass observed of the left lower extremity compared to the right. Left knee demonstrates smaller fluctuations between flexion extension. Patient responds well to tapping of the quad increase knee extension during stance phase of the left lower extremity. Recommended patient benefit from skilled physical therapy to increase l lower extremity strength bilaterally, improve transfers, improve gait, improve activity tolerance and balance. Telemetry for history of orthostatic hypotension, dizziness, vasovagal syncope. Regular Diet. Ativan 0.5mg Q4H for anxiety <Ulisses Cope - Last Filed: 01/18/21 13:28> - Patient Data Vitals - Most Recent: Last Vital Signs Temp 36.9 C 01/18/21 09:00 Pulse 75 01/18/21 09:00 Resp 16 01/18/21 09:00 BP 105/59 L 01/18/21 09:00 Pulse Ox 98 01/18/21 09:00 I&O - Last 24 Hours: Intake & Output 01/17/21 01/18/21 01/18/21 22:59 06:59 14:59 Intake Total 1600 1050 Output Total 2200 500 Balance -600 550 Lab Results Last 24 Hours: Laboratory Results - last 24 hr 01/18/21 01/18/21 Range/Units 05:23 05:23 WBC 7.23 (4.0-11.0) K/uL RBC 4.28 L (4.30-5.90) M/uL Hgb 13.1 (12.0-16.0) g/dL Hct 38.9 (36.0-46.0) % MCV 90.9 (80.0-98.0) fL MCH 30.6 (27.0-32.0) pg MCHC 33.7 (31.0-37.0) g/dL RDW Std Deviation 43.3 (28.0-62.0) fl RDW Coeff of Lizz 13 (11.0-15.0) % Plt Count 227 (150-400) K/uL MPV 10.50 (7.40-12.00) fL Neut % (Auto) 57.3 (48.0-80.0) % Lymph % (Auto) 29.3 (16.0-40.0) % [place] % (Auto) 8.6 (0.0-15.0) % Eos % (Auto) 4.4 (0.0-7.0) % Baso % (Auto) 0.4 (0.0-1.5) % Neut # (Auto) 4.1 (1.4-5.7) K/uL Lymph # (Auto) 2.1 (0.6-2.4) K/uL [place] # (Auto) 0.6 (0.0-0.8) K/uL Eos # (Auto) 0.3 (0.0-0.7) K/uL Baso # (Auto) 0.0 (0.0-0.1) K/uL Nucleated RBC % 0.0 /100WBC Nucleated RBCs # 0 K/uL Sodium 140 (136-145) mmol/L Potassium 4.5 (3.5-5.1) mmol/L Chloride 105 (98-107) mmol/L Carbon Dioxide 25.8 (21.0-32.0) mmol/L BUN 20 H (7.0-18.0) mg/dL Creatinine 0.8 (0.6-1.0) mg/dL Est Cr Clr Drug Dosing 85.34 mL/min Estimated GFR (MDRD) > 60.0 ml/min Glucose 90 (74-106) mg/dL Calcium 8.3 L (8.5-10.1) mg/dL Creatine Kinase 46 (26-308) U/L TSH 3rd Generation 1.60 (0.36-3.74) uIU/mL Med Orders - Current: Current Medications Methylprednisolone Sodium Succinate 500 mg/ Sodium Chloride 104 mls @ 104 mls/hr IV DAILY [facility] Ketorolac Tromethamine (Ketorolac 15 Mg/Ml Sdv) 15 mg IVPUSH Q6H PRN PRN Reason: Pain Stop: 01/22/21 00:59 Last Admin: 01/18/21 09:26 Dose: 15 mg Documented by: Lorazepam (Lorazepam 2 Mg/Ml Sdv) 0.5 mg IVPUSH Q4H PRN PRN Reason: Anxiety Last Admin: 01/18/21 11:42 Dose: 0.5 mg Documented by: Ketamine 50 Mg/Ml Nasal [place] Own Med 0 dose INH BID PRN PRN Reason: severe pain Last Admin: 01/17/21 22:27 Dose: 1 dose Documented by: Naltrexone 6.5 Mg (Tablet) 1 each PO BEDTIME [facility] Last Admin: 01/17/21 20:37 Dose: 1 each Documented by: Lidocaine 2.5%/ (Prilocaine 2.5%) 1 each TOP BID PRN PRN Reason: ASDIRECTED Last Admin: 01/17/21 20:38 Dose: 1 each Documented by: Diclofenac Sodium (100 Gm Tube) 1 each TOP QID PRN PRN Reason: Pain (mild 1-3) Last Admin: 01/18/21 13:22 Dose: 1 each Documented by: Naltrexone 2mg 1 each PO 0900,1400 [facility] Last Admin: 01/18/21 09:26 Dose: 1 each Documented by: Pregabalin (Pregabalin 75 Mg Cap) 75 mg PO BID [facility] Last Admin: 01/18/21 09:15 Dose: 75 mg Documented by: Sertraline HCl (Sertraline 25 Mg Tab) 75 mg PO DAILY [facility] Last Admin: 01/18/21 09:15 Dose: 75 mg Documented by: Sodium Chloride (Sodium Chloride 0.9% 10 Ml Syringe) 10 ml FLUSH ASDIRECTED PRN PRN Reason: Keep Vein Open Last Admin: 01/16/21 11:15 Dose: 10 ml Documented by: Sodium Chloride (Sodium Chloride 0.9% 2.5 Ml Syringe) 2.5 ml FLUSH ASDIRECTED PRN PRN Reason: Keep Vein Open Last Admin: 01/16/21 11:14 Dose: 2.5 ml Documented by: Discontinued Medications Clonazepam (Clonazepam 0.5 Mg Tab) 0.5 mg PO BID PRN PRN Reason: Anxiety Last Admin: 01/17/21 12:12 Dose: 0.25 mg Documented by: Gadobenate Dimeglumine (Gadobenate Dimeglumine 529 Mg/Ml 20 Ml Sdv) 20 ml IVPUSH ONETIME STA Stop: 01/16/21 13:40 Last Admin: 01/16/21 13:40 Dose: 12 ml Documented by: Naltrexone 2 Mg (Tablet Own Med) 0 each PO 0900,1400 [facility] Last Admin: 01/18/21 09:32 Dose: Not Given Documented by: Naltrexone 2 Mg (Tablet) 1 each PO BID [facility] Last Admin: 01/17/21 09:37 Dose: 1 each Documented by: - Patient Data Lab Results Last 24 hrs: Laboratory Results - last 24 hr 01/18/21 01/18/21 Range/Units 05:23 05:23 WBC 7.23 (4.0-11.0) K/uL RBC 4.28 L (4.30-5.90) M/uL Hgb 13.1 (12.0-16.0) g/dL Hct 38.9 (36.0-46.0) % MCV 90.9 (80.0-98.0) fL MCH 30.6 (27.0-32.0) pg MCHC 33.7 (31.0-37.0) g/dL RDW Std Deviation 43.3 (28.0-62.0) fl RDW Coeff of Lizz 13 (11.0-15.0) % Plt Count 227 (150-400) K/uL MPV 10.50 (7.40-12.00) fL Neut % (Auto) 57.3 (48.0-80.0) % Lymph % (Auto) 29.3 (16.0-40.0) % [place] % (Auto) 8.6 (0.0-15.0) % Eos % (Auto) 4.4 (0.0-7.0) % Baso % (Auto) 0.4 (0.0-1.5) % Neut # (Auto) 4.1 (1.4-5.7) K/uL Lymph # (Auto) 2.1 (0.6-2.4) K/uL [place] # (Auto) 0.6 (0.0-0.8) K/uL Eos # (Auto) 0.3 (0.0-0.7) K/uL Baso # (Auto) 0.0 (0.0-0.1) K/uL Nucleated RBC % 0.0 /100WBC Nucleated RBCs # 0 K/uL Sodium 140 (136-145) mmol/L Potassium 4.5 (3.5-5.1) mmol/L Chloride 105 (98-107) mmol/L Carbon Dioxide 25.8 (21.0-32.0) mmol/L BUN 20 H (7.0-18.0) mg/dL Creatinine 0.8 (0.6-1.0) mg/dL Est Cr Clr Drug Dosing 85.34 mL/min Estimated GFR (MDRD) > 60.0 ml/min Glucose 90 (74-106) mg/dL Calcium 8.3 L (8.5-10.1) mg/dL Creatine Kinase 46 (26-308) U/L TSH 3rd Generation 1.60 (0.36-3.74) uIU/mL Result Diagrams: 01/18/21 05:23 01/18/21 05:23 Sepsis Event Note - Focused Exam Vital Signs: Vital Signs Temp Pulse Resp BP Pulse Ox 01/18/21 09:00 36.9 C 75 16 105/59 L 98 01/18/21 03:34 36.4 C 59 L 18 91/52 L 99 - Problem List & Annotations (1) Gait abnormality SNOMED Code(s): 97127333 Code(s): R26.9 - UNSPECIFIED ABNORMALITIES OF GAIT AND MOBILITY Status: Acute Current Visit: Yes (2) Risk for falls SNOMED Code(s): 029682458 Code(s): Z91.81 - HISTORY OF FALLING Status: Acute Current Visit: Yes (3) Unable to ambulate SNOMED Code(s): 899453612 Code(s): R26.2 - DIFFICULTY IN WALKING, NOT ELSEWHERE CLASSIFIED Status: Acute Current Visit: Yes - My Orders Last 24 Hours: My Active Orders 01/18/21 13:16 Brain w wo Cont [MR] Routine 01/18/21 13:18 Cervical Spine Comp w wo Cont [MR] Routine 01/18/21 13:30 methylPREDNISolone Sod Succ [Solu-MEDROL] 500 mg Sodium Chloride 0.9% [Normal Saline] 100 ml IV DAILY - Plan Plan:: I have seen and evaluated the patient and agree with the residents note unless specified in my note
[2021-01-17] MEDS: NALTREXONE PO SCH ×2 (14:52→20:37)
[2021-01-17] MEDS: LORazepam 2 MG/ML SDV IVPUSH PRN (20:36)
[2021-01-17] MEDS: LIDOCAINE TOP PRN (20:38)
[2021-01-17] MEDS: PRILOCAINE TOP PRN (20:38)
[2021-01-18] MEDS: Ketorolac 15 MG/ML SDV IVPUSH PRN ×4 (03:07→21:33)
[2021-01-18 06:40] LABS: BLOOD UREA NITROGEN,BUN 20 mg/dL (7.0-18.0); CARBON DIOXIDE,CO2 25.8 mmol/L (21.0-32.0); CHLORIDE,CL 105 mmol/L (98-107); GLUCOSE RANDOM 90 mg/dL (74-106); POTASSIUM,K 4.5 mmol/L (3.5-5.1); SODIUM,NA 140 mmol/L (136-145)
[2021-01-18] MEDS: Pregabalin 75 MG Cap PO SCH ×2 (09:15→20:26)
[2021-01-18] MEDS: Sertraline 25 MG Tab PO SCH (09:15)
[2021-01-18] MEDS: NALTREXONE PO SCH ×4 (09:26→20:26)
[2021-01-18] MEDS: KETAMINE 50 MG/ML INH PRN ×2 (11:00→23:46)
[2021-01-18] MEDS: LORazepam 2 MG/ML SDV IVPUSH PRN ×3 (11:42→20:27)
[2021-01-18] MEDS ORDERED: methylPREDNISolone Sodium Succinate 125 MG/2 ML SDV IVPUSH SCH (13:15)
--- NOTE | 2021-01-18 13:24 | PCM.PN ---
- General Info Date of Service: 01/18/21 Admission Dx/Problem (Free Text): Admission Diagnosis/Problem Admission Diagnosis/Problem Weakness Subjective Update: Patient states she she is more weak and fatigued today she feels "it takes time for her to move her arm and legs, she has to try several times before it starts moving" she feels her thoracic outlet syndrome symptoms are now being manifested in her right hand, weakness and tremor of right arm, she also s/o pins and needle sensation of right foot (plantar aspect) only when she is weight bearing on it. Patient very tearful and upset about her symptoms. She did feel she has been getting a lot of texts and received lamb and has made her feel better. wishing to talk to someone for counselling about her symptoms. Functional Status: Reports: Pain Controlled, Tolerating Diet. Denies: Ambulating - Review of Systems General: Reports: Weakness. Denies: Fever HEENT: Denies: Contact Lenses Pulmonary: Denies: Shortness of Breath Cardiovascular: Denies: Chest Pain, Palpitations Gastrointestinal: Denies: Abdominal Pain, Constipation Genitourinary: Denies: Dysuria, Frequency Musculoskeletal: Denies: Neck Pain, Shoulder Pain, Joint Pain, Joint Swelling Skin: Denies: Cyanosis, Mottled Neurological: Denies: Confusion, Dizziness - Patient Data Vitals - Most Recent: Last Vital Signs Temp 36.9 C 01/18/21 09:00 Pulse 75 01/18/21 09:00 Resp 16 01/18/21 09:00 BP 105/59 L 01/18/21 09:00 Pulse Ox 98 01/18/21 09:00 Weight - Most Recent: 56.699 kg I&O - Last 24 Hours: Intake & Output 01/17/21 01/18/21 01/18/21 22:59 06:59 14:59 Intake Total 1600 1050 Output Total 2200 500 Balance -600 550 Lab Results Last 24 Hours: Laboratory Results - last 24 hr 01/18/21 01/18/21 Range/Units 05:23 05:23 WBC 7.23 (4.0-11.0) K/uL RBC 4.28 L (4.30-5.90) M/uL Hgb 13.1 (12.0-16.0) g/dL Hct 38.9 (36.0-46.0) % MCV 90.9 (80.0-98.0) fL MCH 30.6 (27.0-32.0) pg MCHC 33.7 (31.0-37.0) g/dL RDW Std Deviation 43.3 (28.0-62.0) fl RDW Coeff of Lizz 13 (11.0-15.0) % Plt Count 227 (150-400) K/uL MPV 10.50 (7.40-12.00) fL Neut % (Auto) 57.3 (48.0-80.0) % Lymph % (Auto) 29.3 (16.0-40.0) % [facility] % (Auto) 8.6 (0.0-15.0) % Eos % (Auto) 4.4 (0.0-7.0) % Baso % (Auto) 0.4 (0.0-1.5) % Neut # (Auto) 4.1 (1.4-5.7) K/uL Lymph # (Auto) 2.1 (0.6-2.4) K/uL [facility] # (Auto) 0.6 (0.0-0.8) K/uL Eos # (Auto) 0.3 (0.0-0.7) K/uL Baso # (Auto) 0.0 (0.0-0.1) K/uL Nucleated RBC % 0.0 /100WBC Nucleated RBCs # 0 K/uL Sodium 140 (136-145) mmol/L Potassium 4.5 (3.5-5.1) mmol/L Chloride 105 (98-107) mmol/L Carbon Dioxide 25.8 (21.0-32.0) mmol/L BUN 20 H (7.0-18.0) mg/dL Creatinine 0.8 (0.6-1.0) mg/dL Est Cr Clr Drug Dosing 85.34 mL/min Estimated GFR (MDRD) > 60.0 ml/min Glucose 90 (74-106) mg/dL Calcium 8.3 L (8.5-10.1) mg/dL Creatine Kinase 46 (26-308) U/L TSH 3rd Generation 1.60 (0.36-3.74) uIU/mL Med Orders - Current: Current Medications Ketorolac Tromethamine (Ketorolac 15 Mg/Ml Sdv) 15 mg IVPUSH Q6H PRN PRN Reason: Pain Stop: 01/22/21 00:59 Last Admin: 01/18/21 09:26 Dose: 15 mg Documented by: Lorazepam (Lorazepam 2 Mg/Ml Sdv) 0.5 mg IVPUSH Q4H PRN PRN Reason: Anxiety Last Admin: 01/18/21 11:42 Dose: 0.5 mg Documented by: Methylprednisolone Sodium Succinate (Methylprednisolone Sodium Succinate 125 Mg/2 Ml Sdv) 500 mg IVPUSH DAILY [facility] Ketamine 50 Mg/Ml Nasal [place] Own Med 0 dose INH BID PRN PRN Reason: severe pain Last Admin: 01/17/21 22:27 Dose: 1 dose Documented by: Naltrexone 6.5 Mg (Tablet) 1 each PO BEDTIME [facility] Last Admin: 01/17/21 20:37 Dose: 1 each Documented by: Lidocaine 2.5%/ (Prilocaine 2.5%) 1 each TOP BID PRN PRN Reason: ASDIRECTED Last Admin: 01/17/21 20:38 Dose: 1 each Documented by: Diclofenac Sodium (100 Gm Tube) 1 each TOP QID PRN PRN Reason: Pain (mild 1-3) Last Admin: 01/17/21 20:37 Dose: 1 each Documented by: Naltrexone 2mg 1 each PO 0900,1400 [facility] Last Admin: 01/18/21 09:26 Dose: 1 each Documented by: Pregabalin (Pregabalin 75 Mg Cap) 75 mg PO BID [facility] Last Admin: 01/18/21 09:15 Dose: 75 mg Documented by: Sertraline HCl (Sertraline 25 Mg Tab) 75 mg PO DAILY [facility] Last Admin: 01/18/21 09:15 Dose: 75 mg Documented by: Sodium Chloride (Sodium Chloride 0.9% 10 Ml Syringe) 10 ml FLUSH ASDIRECTED PRN PRN Reason: Keep Vein Open Last Admin: 01/16/21 11:15 Dose: 10 ml Documented by: Sodium Chloride (Sodium Chloride 0.9% 2.5 Ml Syringe) 2.5 ml FLUSH ASDIRECTED PRN PRN Reason: Keep Vein Open Last Admin: 01/16/21 11:14 Dose: 2.5 ml Documented by: Discontinued Medications Clonazepam (Clonazepam 0.5 Mg Tab) 0.5 mg PO BID PRN PRN Reason: Anxiety Last Admin: 01/17/21 12:12 Dose: 0.25 mg Documented by: Gadobenate Dimeglumine (Gadobenate Dimeglumine 529 Mg/Ml 20 Ml Sdv) 20 ml IVPUSH ONETIME STA Stop: 01/16/21 13:40 Last Admin: 01/16/21 13:40 Dose: 12 ml Documented by: Naltrexone 2 Mg (Tablet Own Med) 0 each PO 0900,1400 [facility] Last Admin: 01/18/21 09:32 Dose: Not Given Documented by: Naltrexone 2 Mg (Tablet) 1 each PO BID [facility] Last Admin: 01/17/21 09:37 Dose: 1 each Documented by: - Exam General: Alert, Oriented Neck: Supple, Trachea Midline Lungs: Clear to Auscultation, Normal Respiratory Effort Cardiovascular: Regular Rate, Regular Rhythm GI/Abdominal Exam: Normal Bowel Sounds Extremities: Normal Inspection, Limited Range of Motion (in left leg) Neurological: Normal Speech, Normal Tone, Reflexes Equal Bilateral, Sensation Intact, Cranial Nerves Intact. No: Normal Gait, Strength Equal Bilateral Psy/Mental Status: Alert, Labile Mood, Anxious. No: Hallucinations, Withdrawal Symptoms - Patient Data Lab Results Last 24 hrs: Laboratory Results - last 24 hr 01/18/21 01/18/21 Range/Units 05:23 05:23 WBC 7.23 (4.0-11.0) K/uL RBC 4.28 L (4.30-5.90) M/uL Hgb 13.1 (12.0-16.0) g/dL Hct 38.9 (36.0-46.0) % MCV 90.9 (80.0-98.0) fL MCH 30.6 (27.0-32.0) pg MCHC 33.7 (31.0-37.0) g/dL RDW Std Deviation 43.3 (28.0-62.0) fl RDW Coeff of Lizz 13 (11.0-15.0) % Plt Count 227 (150-400) K/uL MPV 10.50 (7.40-12.00) fL Neut % (Auto) 57.3 (48.0-80.0) % Lymph % (Auto) 29.3 (16.0-40.0) % [facility] % (Auto) 8.6 (0.0-15.0) % Eos % (Auto) 4.4 (0.0-7.0) % Baso % (Auto) 0.4 (0.0-1.5) % Neut # (Auto) 4.1 (1.4-5.7) K/uL Lymph # (Auto) 2.1 (0.6-2.4) K/uL [facility] # (Auto) 0.6 (0.0-0.8) K/uL Eos # (Auto) 0.3 (0.0-0.7) K/uL Baso # (Auto) 0.0 (0.0-0.1) K/uL Nucleated RBC % 0.0 /100WBC Nucleated RBCs # 0 K/uL Sodium 140 (136-145) mmol/L Potassium 4.5 (3.5-5.1) mmol/L Chloride 105 (98-107) mmol/L Carbon Dioxide 25.8 (21.0-32.0) mmol/L BUN 20 H (7.0-18.0) mg/dL Creatinine 0.8 (0.6-1.0) mg/dL Est Cr Clr Drug Dosing 85.34 mL/min Estimated GFR (MDRD) > 60.0 ml/min Glucose 90 (74-106) mg/dL Calcium 8.3 L (8.5-10.1) mg/dL Creatine Kinase 46 (26-308) U/L TSH 3rd Generation 1.60 (0.36-3.74) uIU/mL Result Diagrams: 01/18/21 05:23 01/18/21 05:23 Sepsis Event Note - Evaluation Sepsis Screening Result: No Definite Risk - Focused Exam Vital Signs: Vital Signs Temp Pulse Resp BP Pulse Ox 01/18/21 09:00 36.9 C 75 16 105/59 L 98 01/18/21 03:34 36.4 C 59 L 18 91/52 L 99 - Problem List & Annotations (1) Gait abnormality SNOMED Code(s): 50961679 Code(s): R26.9 - UNSPECIFIED ABNORMALITIES OF GAIT AND MOBILITY Status: Acute Current Visit: Yes (2) Risk for falls SNOMED Code(s): 739742169 Code(s): Z91.81 - HISTORY OF FALLING Status: Acute Current Visit: Yes (3) Unable to ambulate SNOMED Code(s): 920709410 Code(s): R26.2 - DIFFICULTY IN WALKING, NOT ELSEWHERE CLASSIFIED Status: Acute Current Visit: Yes - Problem List Review Problem List Initiated/Reviewed/Updated: Yes - My Orders Last 24 Hours: My Active Orders 01/18/21 13:15 methylPREDNISolone Sod Succ [Solu-MEDROL] 500 mg IVPUSH DAILY 01/18/21 13:16 Brain w wo Cont [MR] Routine 01/18/21 13:18 Cervical Spine Comp w wo Cont [MR] Routine - Plan Plan:: Ambulatory dysfunction- Current cause of ambulatory dysfunction unknown. Differential diagnosis to include neuromuscular disease vs. gait dysfunction secondary to generalized weakness vs.conversion disorder. Thoracic and lumbar MRIs not supportive of any neurological cause of patient's ambulatory dysfunction. Brain and neck MRI could not be ascertained due to MRI imaging not available at this time, given she states her weakness isnt improving, and family h/o MS, i will start a trail of IV steroids, and will obtain MRI brain tomorrow, will touch base with neurology again on tuesday after imaging is done, Patient admitted inpatient status for supportive care and physical therapy to assess dysfunction. Dr. Laguerre, neurology, consulted and does not recommend transfer of the patient at this time. Will monitor patient and reassess if transfer is warranted in the future. Physical therapy evaluation 01-11-21, patient unable to maintain active muscle contraction of the left lower extremity, with decreased quad mass observed of the left lower extremity compared to the right. Left knee demonstrates smaller fluctuations between flexion extension. Patient responds well to tapping of the quad increase knee extension during stance phase of the left lower extremity. Recommended patient benefit from skilled physical therapy to increase l lower extremity strength bilaterally, improve transfers, improve gait, improve activity tolerance and balance. cont PT. Telemetry for history of orthostatic hypotension, dizziness, vasovagal syncope. Regular Diet. Ativan 0.5mg Q4H for anxiety
[2021-01-18] MEDS: Acetaminophen 325 MG Tab PO PRN ×2 (14:15→20:26)
[2021-01-18] MEDS: PRILOCAINE TOP PRN (20:25)
[2021-01-18] MEDS: LIDOCAINE TOP PRN (20:25)
[2021-01-19] MEDS: Acetaminophen 325 MG Tab PO PRN ×3 (03:09→15:18)
[2021-01-19] MEDS: LORazepam 2 MG/ML SDV IVPUSH PRN ×3 (03:41→13:37)
[2021-01-19] MEDS: Ketorolac 15 MG/ML SDV IVPUSH PRN ×3 (03:41→15:52)
[2021-01-19] MEDS ORDERED: KETAMINE 50 MG/ML INH PRN (07:08)
[2021-01-19] MEDS ORDERED: Gadobenate Dimeglumine 529 MG/ML 20 ML SDV IVPUSH STA (07:26)
--- NOTE | 2021-01-19 09:10 | MR ---
INDICATION: Left leg weakness. Clonus. Trouble walking. TECHNIQUE: Multiplanar multisequence MR imaging was acquired through the cervical spine prior to and following intravenous contrast. COMPARISON: None. FINDINGS: Focal reversal cervical lordosis centered at C5-6. Vertebral heights are preserved. No acute fracture. No concerning T1 hypointense marrow placing lesions. The cervical cord is normal in signal intensity. No pathologic intramedullary enhancement. C2-3: Mild bilateral facet arthropathy. No spinal canal or neural foraminal narrowing. C3-4: [id number]-[id number] right and mild left facet arthropathy. No spinal canal or neural foraminal narrowing. C4-5: Mild right facet arthropathy. No spinal canal or neural foraminal narrowing. C5-6: Disc degeneration. No spinal canal or neural foramina. C6-7: Moderate left eccentric disc height loss associated with moderate vertebral body edema. Shallow left eccentric disc osteophyte complex. Left uncovertebral joint spurring. No spinal canal narrowing. Moderately severe left without right neural foraminal narrowing. C7-T1: No spinal canal or neural foraminal narrowing. No spinal canal or neural foraminal narrowing in the visualized upper thoracic spine. IMPRESSION: 1. No signal abnormality or pathologic enhancement within the cervical cord. 2. Multilevel cervical spondylosis without spinal canal stenosis. 3. At C6-7, moderately severe left neural foraminal stenosis with left C7 nerve root encroachment/impingement. Moderate discogenic vertebral body edema. 4. Reversal of the cervical lordosis. Dictated by Ever Beltran MD @ Jan 19 2021 9:01AM Signed by Dr. Ever Beltran @ Jan 19 2021 9:07AM
--- NOTE | 2021-01-19 09:16 | MR ---
INDICATION: Left leg weakness. Clonus. Trouble walking. TECHNIQUE: Multiplanar multisequence MR imaging was acquired through the brain prior to and following intravenous contrast. COMPARISON: MRI brain 03/01/2016. FINDINGS: The ventricles and sulci are within normal limits for patient age. No mass effect or midline shift. No parenchymal signal abnormalities. No diffusion restriction to suggest acute infarction. No intracranial hemorrhage or pathologic extra-axial fluid collection. No pathologic intracranial enhancement. The major arterial flow voids of the skullbase are preserved. The globes are symmetric. Small left maxillary sinus retention cyst or polyp. Minimal right mastoid fluid. IMPRESSION: Unremarkable MRI of the brain. Dictated by Ever Beltran MD @ Jan 19 2021 8:52AM Signed by Dr. Ever Beltran @ Jan 19 2021 9:14AM
[2021-01-19] MEDS: Sertraline 25 MG Tab PO SCH (09:17)
[2021-01-19] MEDS: Pregabalin 75 MG Cap PO SCH (09:18)
[2021-01-19] MEDS: NALTREXONE PO SCH ×2 (09:21→13:49)
[2021-01-19 11:28] VITALS: BP 105/64; PULSE 80
--- NOTE | 2021-01-19 13:06 | PCM.CONSN ---
- General Info Date of Service: 01/19/21 Subjective Update: ID: 40 year old woman with history of right thoracic outlet surgery, chronic pain, T4-T9 syrinx, frequent spells of loss of consciousness, admitted with gait dysfunction. See initial consult for review of prior history. On January 16, when she woke up, she couldnt walk. She felt weakness and stiffness in both lower limbs. They wouldnt do what her brain told her to do. The weakness in the right leg improved but her left leg continued to give out. Over the weekend, she has developed tremor in her left hand, pain in her feet. She has worked with PT. She has appt in February at [facility] with somebody that specializes in syrinx. MRI T spine 01/16/2021 showed stable findings of syrinx. MRI L spine showed mild disc bulges at L4/5 and L5/S1. MRI brain and C spine 01/19/2021 normal brain, degenerative changes noted in C spine but no cord signal abnormality. Constitutional: No acute distress Neurological: Mental Status: General: Normal activity, good hygiene, appropriate appearance. Level of consciousness: Awake, alert. Orientation: Oriented to person, place, time and situation. Motor: Power 5/5 throughout. Initial hesitation with left knee flexors. Sensation: Sensation is intact to vibratory sense at great toes perceived less on left Deep tendon reflexes: Normoactive throughout except 1-2 beats clonus at ankles bilaterally. Plantar responses are flexor bilaterally. Coordination: Tremor in bilateral hands, right hand tremor extinguishes with left finger taps, left hand tremor entrains to right tremor. Impression: 40 year old woman who is well spoken, intelligent, polite and suffers from long standing history of chronic pain, frequent spells of loss of consciousness, chronic right hand tremor now admitted with gait dysfunction, also with left hand tremor, painful paresthesias. Examinations have revealed positive signs of functional / nonorganic left hand tremor and lower limb weakness. MRI of entire central nerve system showed cause of symptoms. She has history of syrinx, but this is stable and would not explain her upper limb symptoms. I reviewed psychogenic / functional neurologic syndrome i.e conversion disorder with her and her . She was respectful when she stated that she disagreed with me. She thinks there is something wrong with her that has not been found. I encouraged her to continue with PT and to consider counseling. I also reviewed risk pursuing surgeries, invasive tests in context of conversion disorder. I dont have all the details of evaluation leading up to her thoracic outlet surgery (I had done an EMG that was normal), but it is noteworthy that she did not have sustained benefit from the surgery, and it may have actually made symptoms worse. She has appt at [facility] to see a syrinx specialist. She also would like another opinion from a neurologist, and I agree with plan for referral to neurology. NCS/EMG likely to be low yield. LP would be low yield and contraindicated due to syrinx. - Patient Data Vitals - Most Recent: Last Vital Signs Temp 36.7 C 01/19/21 11:27 Pulse 80 01/19/21 11:27 Resp 16 01/19/21 03:25 BP 105/64 01/19/21 11:27 Pulse Ox 96 01/19/21 11:27 Weight - Most Recent: 56.699 kg I&O - Last 24 Hours: Intake & Output 01/18/21 01/19/21 01/19/21 22:59 06:59 14:59 Intake Total 820 1100 Output Total 900 750 Balance -80 350 Med Orders - Current: Current Medications Acetaminophen (Acetaminophen 325 Mg Tab) 650 mg PO Q6H PRN PRN Reason: Pain Last Admin: 01/19/21 09:20 Dose: 650 mg Documented by: Ketorolac Tromethamine (Ketorolac 15 Mg/Ml Sdv) 15 mg IVPUSH Q6H PRN PRN Reason: Pain Stop: 01/22/21 00:59 Last Admin: 01/19/21 09:40 Dose: 15 mg Documented by: Lorazepam (Lorazepam 2 Mg/Ml Sdv) 0.5 mg IVPUSH Q4H PRN PRN Reason: Anxiety Last Admin: 01/19/21 09:29 Dose: 0.5 mg Documented by: Naltrexone 6.5 Mg (Tablet) 1 each PO BEDTIME LEONID Last Admin: 01/18/21 20:26 Dose: 1 each Documented by: Lidocaine 2.5%/ (Prilocaine 2.5%) 1 each TOP BID PRN PRN Reason: ASDIRECTED Last Admin: 01/18/21 20:25 Dose: 1 each Documented by: Diclofenac Sodium (100 Gm Tube) 1 each TOP QID PRN PRN Reason: Pain (mild 1-3) Last Admin: 01/18/21 20:41 Dose: 1 each Documented by: Naltrexone 2mg 1 each PO 0900,1400 [facility] Last Admin: 01/19/21 09:21 Dose: 1 each Documented by: Ketamine 50 Mg/Ml Nasal Mckenzie Own Med 0 each INH BID PRN PRN Reason: severe pain Last Admin: 01/19/21 11:52 Dose: 2 each Documented by: Pregabalin (Pregabalin 75 Mg Cap) 75 mg PO BID [facility] Last Admin: 01/19/21 09:18 Dose: 75 mg Documented by: Sertraline HCl (Sertraline 25 Mg Tab) 75 mg PO DAILY [facility] Last Admin: 01/19/21 09:17 Dose: 75 mg Documented by: Sodium Chloride (Sodium Chloride 0.9% 10 Ml Syringe) 10 ml FLUSH ASDIRECTED PRN PRN Reason: Keep Vein Open Last Admin: 01/16/21 11:15 Dose: 10 ml Documented by: Sodium Chloride (Sodium Chloride 0.9% 2.5 Ml Syringe) 2.5 ml FLUSH ASDIRECTED PRN PRN Reason: Keep Vein Open Last Admin: 01/16/21 11:14 Dose: 2.5 ml Documented by: Discontinued Medications Clonazepam (Clonazepam 0.5 Mg Tab) 0.5 mg PO BID PRN PRN Reason: Anxiety Last Admin: 01/17/21 12:12 Dose: 0.25 mg Documented by: Gadobenate Dimeglumine (Gadobenate Dimeglumine 529 Mg/Ml 20 Ml Sdv) 20 ml IVPUSH ONETIME STA Stop: 01/16/21 13:40 Last Admin: 01/16/21 13:40 Dose: 12 ml Documented by: Gadobenate Dimeglumine (Gadobenate Dimeglumine 529 Mg/Ml 20 Ml Sdv) 20 ml IVPUS H ONETIME STA Stop: 01/19/21 07:27 Last Admin: 01/19/21 07:53 Dose: 10 ml Documented by: Methylprednisolone Sodium Succinate 500 mg/ Sodium Chloride 104 mls @ 104 mls/hr IV DAILY [facility] Last Admin: 01/19/21 09:34 Dose: 104 mls/hr Documented by: Ketamine 50 Mg/Ml Nasal Mckenzie Own Med 0 dose INH BID PRN PRN Reason: severe pain Last Admin: 01/18/21 23:46 Dose: 2 dose Documented by: Naltrexone 2 Mg (Tablet Own Med) 0 each PO 0900,1400 [facility] Last Admin: 01/18/21 09:32 Dose: Not Given Documented by: Naltrexone 2 Mg (Tablet) 1 each PO BID LEONID Last Admin: 01/17/21 09:37 Dose: 1 each Documented by: Sepsis Event Note - Evaluation Sepsis Screening Result: No Definite Risk - Focused Exam Vital Signs: Vital Signs Temp Pulse Resp BP Pulse Ox 01/19/21 11:27 36.7 C 80 105/64 96 01/19/21 03:25 36.6 C 83 16 98/60 100 Consult PN Assessment/Plan Procedures: Procedures BLOOD TYPING SEROLOGIC ABO (07/06/18) BLOOD TYPING SEROLOGIC RH(D) (07/06/18) CHEST X-RAY 2VW FRONTAL&LATL (10/02/16) CHEST X-RAY SPECIAL VIEWS (10/02/16) CHORIONIC GONADOTROPIN ASSAY (07/06/18) COMPLETE CBC AUTOMATED (07/06/18) COMPLETE CBC W/AUTO DIFF WBC (06/08/19) COMPREHEN METABOLIC PANEL (06/08/19) CT HEAD/BRAIN W/O DYE (06/08/19) CULTR BACTERIA EXCEPT BLOOD (08/31/16) CULTURE AEROBIC IDENTIFY (08/31/16) CULTURE OTHR SPECIMN AEROBIC (08/31/16) CULTURE SCREEN ONLY (06/08/19) ELECTROCARDIOGRAM TRACING (10/02/16) EMERGENCY DEPT VISIT (06/08/19) EMERGENCY DEPT VISIT (10/02/16) GLYCOSYLATED HEMOGLOBIN TEST (03/24/20) HELICOBACTER PYLORI ANTIBODY (11/22/16) HEP B SURFACE ANTIBODY (10/29/14) HETEROPHILE ANTIBODY SCREEN (06/08/19) HIV-1/HIV-2 1 RESULT ANTBDY (10/29/14) HYDRATE IV INFUSION ADD-ON (06/08/19) INFLUENZA ASSAY W/OPTIC (01/09/20) LAPAROSCOPY EXCISE LESIONS (07/06/18) METABOLIC PANEL TOTAL CA (07/06/18) MICROBE SUSCEPTIBLE CINDI (08/31/16) MRI BRAIN STEM W/O & W/DYE (03/01/16) MRI CHEST SPINE W/O DYE (07/04/18) MRI JOINT UPR EXTREM W/O DYE (02/25/17) MRI LUMBAR SPINE W/O DYE (10/02/18) MRI NECK SPINE W/O DYE (07/04/18) RBC ANTIBODY SCREEN (07/06/18) RBC SED RATE AUTOMATED (03/24/20) ROUTINE VENIPUNCTURE (03/24/20) SARS-COV-2 COVID-19 AMP PRB (01/09/20) SMEAR WET [place] SALINE/INK (10/11/14) STREP A ASSAY W/OPTIC (06/08/19) THER/PROPH/DIAG INJ IV PUSH (06/08/19) THER/PROPH/DIAG INJ SC/IM (10/02/16) TISSUE EXAM BY PATHOLOGIST (07/06/18) TRANSVAGINAL US NON-OB (03/14/18) TX/PRO/DX INJ NEW DRUG ADDON (06/08/19) URINALYSIS AUTO W/SCOPE (06/08/19) US EXAM OF HEAD AND NECK (07/18/15) X-RAY EXAM CHEST 1 VIEW (06/08/19) X-RAY EXAM OF SHOULDER (01/11/17) (1) Gait abnormality SNOMED Code(s): 41789046 Code(s): R26.9 - UNSPECIFIED ABNORMALITIES OF GAIT AND MOBILITY Current Visit: Yes (2) Unable to ambulate SNOMED Code(s): 004172246 Code(s): R26.2 - DIFFICULTY IN WALKING, NOT ELSEWHERE CLASSIFIED Current Visit: Yes Problem List Initiated/Reviewed/Updated: Yes
--- NOTE | 2021-01-19 16:20 | PCM.DCSUM1 ---
<Michael Segura - Last Filed: 01/19/21 21:04> Discharge Summary - Hospital Course Free Text/Narrative:: 40-year-old female with PMH of seasonal asthma, GERD, Back Pain, Chronic, Fibromyalgia, Neck Pain, Degenerative disc disease, syrinx, Chronic pain syndrome, admitted for ambulatory dysfunction. Patient presented to the ED earlier today with complaint of left lower leg weakness and instability. Patient states morning of admission that she noticed that she was unable to bear weight on her left leg without feeling unsteady and she had to use a cane for balance. Patient stated no concerns or difficulty with walking the previous night. Patient denied any pain or sensation changes in either leg. Patient denied any recent history of fever, chills or any infectious process. Patient denied difficulty with urinating, bowel dysfunction, denies any recent history of trauma or falls injuring her legs or her lower back. Patient did state however that beginning this past Tuesday she noticed it erratic heart rates ranging between 40 to the 100s. Patient stated that she does have some cardiac history including "vagus nerve damage" which causes her to get dizzy at times and pass out. She has seen Dr. Mcnamara, cardiology, at [facility] in [place]. Patient stated that she was not given a specific diagnosis and was never treated with any medications. On admission patient denies fever, chills, abdominal pain, nausea, vomiting, shortness of breath, chest pain, dizziness, lightheadedness, blurry vision, syncopal episode, urinary retention, no new rashes or lesions noted. Patient denies any loss or retention of bowel bladder function or saddle anesthesia. Dr. Laguerre, neurology, was consulted and recommendation was to admit the patient for observation and physical therapy to assess ambulatory dysfunction and/or further imaging if available. Imaging during admission on 01-13-21 course performed including MRI thoracic spine which showed stable findings of syrinx, MRI lumbar spine which showed mild disc bulges at L4/5 and L5/S1. MRI brain and cervical spine on 01-19-21 which showed normal brain, mild degenerative changes noted in cervical spine but no cord signal abnormality. Physical therapy assessment during admission and on discharge was for patient to be discharged with a front wheel walker and/or wheelchair. Patient to also have multiple follow-up home health visits for continued physical therapy. No pathological cause of patient's lower extremity weakness more so on the left could be found. Possible psychogenic or conversion disorder causes of patient's symptoms should not be ruled out. Patient to be followed up in [facility] by neurology and neurosurgery for further evaluation and/or treatment. - Discharge Data Discharge Date: 01/19/21 Discharge Disposition: Home, Self-Care 01 Condition: Stable - Referral to Home Health Date of Face to Face Encounter: 01/19/21 Reason for Homebound Status: GAIT DYSFUNCTION, LOWER EXTREMITY WEAKNESS Primary Care Physician: PCP None Skilled Need: PHYSICAL THERAPY. OCCUPATIONAL THERAPY - Discharge Diagnosis/Problem(s) (1) Orthostatic dizziness SNOMED Code(s): 134877288 ICD Code: R42 - DIZZINESS AND GIDDINESS Status: Acute (2) Bilateral leg weakness SNOMED Code(s): 7418753 ICD Code: R29.898 - OTH SYMPTOMS AND SIGNS INVOLVING THE MUSCULOSKELETAL SYSTEM Status: Acute (3) Gait abnormality SNOMED Code(s): 15110921 ICD Code: R26.9 - UNSPECIFIED ABNORMALITIES OF GAIT AND MOBILITY Status: Acute (4) Risk for falls SNOMED Code(s): 122543534 ICD Code: Z91.81 - HISTORY OF FALLING Status: Acute (5) Unable to ambulate SNOMED Code(s): 258887437 ICD Code: R26.2 - DIFFICULTY IN WALKING, NOT ELSEWHERE CLASSIFIED Status: Acute (6) Thoracic back pain SNOMED Code(s): 711125528 ICD Code: M54.6 - PAIN IN THORACIC SPINE Status: Acute Qualifiers: Chronicity: unspecified Back pain laterality: midline Qualified Code(s): M54.6 - Pain in thoracic spine - Patient Summary/Data Consults: Consultations 01/16/21 15:21 Consult to Physician [CONS] Stat 01/16/21 17:04 Consult to Physical Therapy [PT Evaluation and Treatment] [CONS] Routine 01/19/21 10:45 Consult to Occupational Therapy [OT Evaluation and Treatment] [CONS] Routine 01/19/21 15:36 Consult to Home Health [CONS] Routine - Patient Instructions Activity: As Tolerated Notify Provider of: Increased Pain, Nausea and/or Vomiting Other/Special Instructions: HOME HEALTH REFERRAL FOR PHYSICAL THERAPY AND OCCUPATIONAL THERAPY - Discharge Plan Home Medications: Home Meds Ketamine Hcl [Ketamine Nasal [place] Compound] 1 dose IN ASDIRECTED PRN 06/08/19 [History] Cholecalciferol (Vitamin D3) [Vitamin D] 5,000 tab DAILY 01/16/21 [History] ClonazePAM [KlonoPIN] 0.5 mg PO BID PRN 01/16/21 [History] Naltrexone 2 mg PO BID 01/16/21 [History] Naltrexone 6.5 mg PO BEDTIME 01/16/21 [History] Pregabalin [Lyrica] 75 mg PO BID 01/16/21 [History] Sertraline [Zoloft] 75 mg PO DAILY 01/16/21 [History] Diclofenac Sodium [Voltaren 1% Gel] 1 applic TOP QID PRN 01/17/21 [History] Patient Handouts: Weakness, Vcnt-by-Mdxv Referrals: Daljit Long MD [Ordering Only Provider] - 01/28/21 10:15 am - Discharge Summary/Plan Comment DC Time >30 min.: Yes - General Info Date of Service: 01/19/21 - Review of Systems General: Denies: Fever, Chills Pulmonary: Denies: Shortness of Breath, Cough Cardiovascular: Denies: Chest Pain Gastrointestinal: Denies: Abdominal Pain Musculoskeletal: Reports: Other (Patient states pins and needle sensation lower extremities. Of note patient has already been prescribed Lyrica for neuropathy) Neurological: Reports: Pre-Existing Deficit, Tingling, Gait Disturbance. Denies: Confusion, Dizziness, Syncope, Change in Speech Psychiatric: Denies: Confusion - Patient Data Vitals - Most Recent: Last Vital Signs Temp 98.0 F 01/19/21 11:27 Pulse 80 01/19/21 11:27 Resp 16 01/19/21 03:25 BP 105/64 01/19/21 11:27 Pulse Ox 96 01/19/21 11:27 Weight - Most Recent: 56.699 kg I&O - Last 24 hours: Intake & Output 01/19/21 01/19/21 01/19/21 06:59 14:59 22:59 Intake Total 1100 Output Total 750 Balance 350 Med Orders - Current: Current Medications Acetaminophen (Acetaminophen 325 Mg Tab) 650 mg PO Q6H PRN PRN Reason: Pain Last Admin: 01/19/21 15:18 Dose: 650 mg Documented by: Ketorolac Tromethamine (Ketorolac 15 Mg/Ml Sdv) 15 mg IVPUSH Q6H PRN PRN Reason: Pain Stop: 01/22/21 00:59 Last Admin: 01/19/21 15:52 Dose: 15 mg Documented by: Lorazepam (Lorazepam 2 Mg/Ml Sdv) 0.5 mg IVPUSH Q4H PRN PRN Reason: Anxiety Last Admin: 01/19/21 13:37 Dose: 0.5 mg Documented by: Naltrexone 6.5 Mg (Tablet) 1 each PO BEDTIME [facility] Last Admin: 01/18/21 20:26 Dose: 1 each Documented by: Lidocaine 2.5%/ (Prilocaine 2.5%) 1 each TOP BID PRN PRN Reason: ASDIRECTED Last Admin: 01/18/21 20:25 Dose: 1 each Documented by: Diclofenac Sodium (100 Gm Tube) 1 each TOP QID PRN PRN Reason: Pain (mild 1-3) Last Admin: 01/19/21 13:50 Dose: 1 each Documented by: Naltrexone 2mg 1 each PO 0900,1400 [facility] Last Admin: 01/19/21 13:49 Dose: 1 each Documented by: Ketamine 50 Mg/Ml Nasal [place] Own Med 0 each INH BID PRN PRN Reason: severe pain Last Admin: 01/19/21 11:52 Dose: 2 each Documented by: Pregabalin (Pregabalin 75 Mg Cap) 75 mg PO BID [facility] Last Admin: 01/19/21 09:18 Dose: 75 mg Documented by: Sertraline HCl (Sertraline 25 Mg Tab) 75 mg PO DAILY [facility] Last Admin: 01/19/21 09:17 Dose: 75 mg Documented by: Sodium Chloride (Sodium Chloride 0.9% 10 Ml Syringe) 10 ml FLUSH ASDIRECTED PRN PRN Reason: Keep Vein Open Last Admin: 01/16/21 11:15 Dose: 10 ml Documented by: Sodium Chloride (Sodium Chloride 0.9% 2.5 Ml Syringe) 2.5 ml FLUSH ASDIRECTED PRN PRN Reason: Keep Vein Open Last Admin: 01/16/21 11:14 Dose: 2.5 ml Documented by: Discontinued Medications Clonazepam (Clonazepam 0.5 Mg Tab) 0.5 mg PO BID PRN PRN Reason: Anxiety Last Admin: 01/17/21 12:12 Dose: 0.25 mg Documented by: Gadobenate Dimeglumine (Gadobenate Dimeglumine 529 Mg/Ml 20 Ml Sdv) 20 ml IVPUSH ONETIME STA Stop: 01/16/21 13:40 Last Admin: 01/16/21 13:40 Dose: 12 ml Documented by: Gadobenate Dimeglumine (Gadobenate Dimeglumine 529 Mg/Ml 20 Ml Sdv) 20 ml IVPUSH ONETIME STA Stop: 01/19/21 07:27 Last Admin: 01/19/21 07:53 Dose: 10 ml Documented by: Methylprednisolone Sodium Succinate 500 mg/ Sodium Chloride 104 mls @ 104 mls/hr IV DAILY [facility] Last Admin: 01/19/21 09:34 Dose: 104 mls/hr Documented by: Ketamine 50 Mg/Ml Nasal [place] Own Med 0 dose INH BID PRN PRN Reason: severe pain Last Admin: 01/18/21 23:46 Dose: 2 dose Documented by: Naltrexone 2 Mg (Tablet Own Med) 0 each PO 0900,1400 [facility] Last Admin: 01/18/21 09:32 Dose: Not Given Documented by: Naltrexone 2 Mg (Tablet) 1 each PO BID [facility] Last Admin: 01/17/21 09:37 Dose: 1 each Documented by: - Exam General: Reports: Alert, Oriented Lungs: Reports: Clear to Auscultation, Normal Respiratory Effort Cardiovascular: Reports: Regular Rate, Regular Rhythm GI/Abdominal Exam: Soft, Non-Tender Extremities: No Pedal Edema. No: Normal Range of Motion Neurological: Reports: Normal Speech, Sensation Intact. Denies: Normal Gait, Strength Equal Bilateral Psy/Mental Status: Reports: Alert <Anatoliy,Hooria - Last Filed: 01/20/21 22:45> Discharge Summary - Hospital Course Free Text/Narrative:: I have seen and evaluated the patient and agree with the residents note unless specified in my note - Referral to Home Health Primary Care Physician: PCP None - Discharge Diagnosis/Problem(s) (1) Gait abnormality SNOMED Code(s): 05371781 ICD Code: R26.9 - UNSPECIFIED ABNORMALITIES OF GAIT AND MOBILITY Status: Acute (2) Risk for falls SNOMED Code(s): 513042924 ICD Code: Z91.81 - HISTORY OF FALLING Status: Acute (3) Unable to ambulate SNOMED Code(s): 654173006 ICD Code: R26.2 - DIFFICULTY IN WALKING, NOT ELSEWHERE CLASSIFIED Status: Acute - Patient Summary/Data Consults: Consultations 01/16/21 15:21 Consult to Physician [CONS] Stat 01/16/21 17:04 Consult to Physical Therapy [PT Evaluation and Treatment] [CONS] Routine 01/19/21 10:45 Consult to Occupational Therapy [OT Evaluation and Treatment] [CONS] Routine 01/19/21 15:36 Consult to Home Health [CONS] Routine - Patient Data Vitals - Most Recent: Last Vital Signs Temp 36.7 C 01/19/21 11:27 Pulse 80 01/19/21 11:27 Resp 16 01/19/21 03:25 BP 105/64 01/19/21 11:27 Pulse Ox 96 01/19/21 11:27 Med Orders - Current: Current Medications Discontinued Medications Acetaminophen (Acetaminophen 325 Mg Tab) 650 mg PO Q6H PRN PRN Reason: Pain Last Admin: 01/19/21 15:18 Dose: 650 mg Documented by: Clonazepam (Clonazepam 0.5 Mg Tab) 0.5 mg PO BID PRN PRN Reason: Anxiety Last Admin: 01/17/21 12:12 Dose: 0.25 mg Documented by: Gadobenate Dimeglumine (Gadobenate Dime[place]umine 529 Mg/Ml 20 Ml Sdv) 20 ml IVPUSH ONETIME STA Stop: 01/16/21 13:40 Last Admin: 01/16/21 13:40 Dose: 12 ml Documented by: Gadobenate Dimeglumine (Gadobenate Dime[place]umine 529 Mg/Ml 20 Ml Sdv) 20 ml IVPUSH ONETIME STA Stop: 01/19/21 07:27 Last Admin: 01/19/21 07:53 Dose: 10 ml Documented by: Methylprednisolone Sodium Succinate 500 mg/ Sodium Chloride 104 mls @ 104 mls/hr IV DAILY [facility] Last Admin: 01/19/21 09:34 Dose: 104 mls/hr Documented by: Ketorolac Tromethamine (Ketorolac 15 Mg/Ml Sdv) 15 mg IVPUSH Q6H PRN PRN Reason: Pain Stop: 01/22/21 00:59 Last Admin: 01/19/21 15:52 Dose: 15 mg Documented by: Lorazepam (Lorazepam 2 Mg/Ml Sdv) 0.5 mg IVPUSH Q4H PRN PRN Reason: Anxiety Last Admin: 01/19/21 13:37 Dose: 0.5 mg Documented by: Ketamine 50 Mg/Ml Nasal [place] Own Med 0 dose INH BID PRN PRN Reason: severe pain Last Admin: 01/18/21 23:46 Dose: 2 dose Documented by: Naltrexone 2 Mg (Tablet Own Med) 0 each PO 0900,1400 [facility] Last Admin: 01/18/21 09:32 Dose: Not Given Documented by: Naltrexone 2 Mg (Tablet) 1 each PO BID [facility] Last Admin: 01/17/21 09:37 Dose: 1 each Documented by: Naltrexone 6.5 Mg (Tablet) 1 each PO BEDTIME [facility] Last Admin: 01/18/21 20:26 Dose: 1 each Documented by: Lidocaine 2.5%/ (Prilocaine 2.5%) 1 each TOP BID PRN PRN Reason: ASDIRECTED Last Admin: 01/18/21 20:25 Dose: 1 each Documented by: Diclofenac Sodium (100 Gm Tube) 1 each TOP QID PRN PRN Reason: Pain (mild 1-3) Last Admin: 01/19/21 13:50 Dose: 1 each Documented by: Naltrexone 2mg 1 each PO 0900,1400 [facility] Last Admin: 01/19/21 13:49 Dose: 1 each Documented by: Ketamine 50 Mg/Ml Nasal [place] Own Med 0 each INH BID PRN PRN Reason: severe pain Last Admin: 01/19/21 11:52 Dose: 2 each Documented by: Pregabalin (Pregabalin 75 Mg Cap) 75 mg PO BID [facility] Last Admin: 01/19/21 09:18 Dose: 75 mg Documented by: Sertraline HCl (Sertraline 25 Mg Tab) 75 mg PO DAILY [facility] Last Admin: 01/19/21 09:17 Dose: 75 mg Documented by: Sodium Chloride (Sodium Chloride 0.9% 10 Ml Syringe) 10 ml FLUSH ASDIRECTED PRN PRN Reason: Keep Vein Open Last Admin: 01/16/21 11:15 Dose: 10 ml Documented by: Sodium Chloride (Sodium Chloride 0.9% 2.5 Ml Syringe) 2.5 ml FLUSH ASDIRECTED P RN PRN Reason: Keep Vein Open Last Admin: 01/16/21 11:14 Dose: 2.5 ml Documented by:
== END 2021-01-19 16:15 | disposition home or self-care (01) | DRG 58 ==
LOC: MW.ED 10:05 → MW.MS 16:27
PROVIDERS: ADMIT Student in an Organized Health Care Education/Training Program; ATTEND Student in an Organized Health Care Education/Training Program
DX: R26.9 Unspecified abnormalities of gait and mobility (principal); R29.898 Other symptoms and signs involving the musculoskeletal system; I95.1 Orthostatic hypotension; R42 Dizziness and giddiness; F41.9 Anxiety disorder, unspecified; K21.9 Gastro-esophageal reflux disease without esophagitis; M54.9 Dorsalgia, unspecified; M79.7 Fibromyalgia; M54.2 Cervicalgia; G89.4 Chronic pain syndrome; M54.6 Pain in thoracic spine; F32.9 Major depressive disorder, single episode, unspecified; Z20.822 Contact with and (suspected) exposure to COVID-19; Z91.81 History of falling; Z91.040 Latex allergy status; Z88.2 Allergy status to sulfonamides; Z88.1 Allergy status to other antibiotic agents; Z91.013 Allergy to seafood; Z91.018 Allergy to other foods; Z79.899 Other long term (current) drug therapy; Z90.49 Acquired absence of other specified parts of digestive tract; Z90.710 Acquired absence of both cervix and uterus
CPT/HCPCS: 0240U; 36415; 70450; 70450-26; 70553; 70553-26; 72148; 72148-26; 72156; 72156-26; 72157; 72157-26; 80048; 80053; 81001; 82550; 82607; 83735; 84100; 84443; 84484; 84703; 85025; 93005; 93010; 96374; 97110-GP; 97112-GP; 97162-GP; 97530-GP; 99283; 99285-25; A9270-GY; A9577; J1885; J2060; J2930

== ENCOUNTER 2021-09-29 12:05 | Emergency (ER) | payer BC ==
[2021-09-29] MEDS ORDERED: Sodium Chloride 0.9% 1,000 ML IV ONE (12:43)
[2021-09-29] MEDS ORDERED: fentaNYL 50 MCG/ML SDV IVPUSH ONE (12:43)
[2021-09-29] MEDS ORDERED: Ondansetron 4 MG/2 ML SDV IVPUSH ONE (12:46)
--- NOTE | 2021-09-29 12:55 | EDM.PDOC ---
ED HPI GENERAL MEDICAL PROBLEM - General Chief Complaint: Abdominal Pain Stated Complaint: STOMACH PAIN Time Seen by Provider: 09/29/21 12:24 Source of Information: Reports: Patient History Limitations: Reports: No Limitations - History of Present Illness INITIAL COMMENTS - FREE TEXT/NARRATIVE: Presents to the emergency room with a complaint of abdominal pain and bloating. The patient states that last week she had an elective laparoscopic appendectomy along with a vaginal tie-up procedure with mesh. She had it done by a surgeon in the [place] area. She went there because she had had her hysterectomy and previous surgeries done there. She resides in [place]. She called his office this morning and was told to come to the emergency room for further evaluation. She states that initially postop she was doing well but then developed constipation, abdominal pain and bloating, and trouble emptying her bladder. She has been taking Percocet for pain along with docusate for constipation. Yesterday she took MiraLAX and an enema. She did have a hard bowel movement yesterday. No fever or dysuria but "it feels like not all the pee comes out". She has been eating and drinking fluids until this am when she was nauseated and vomited once. She has a history of thoracic outlet syndrome, endometriosis, fibromyalgia, a spine cyst and chronic pain syndrome. She states she no longer takes the naltrexone and has taken opioids such as morphine, fentanyl and Percocet without problems in the past. abdomen Pain Score (Numeric/FACES): 8 - Related Data Allergies Allergy/AdvReac Type Severity Reaction Status Date / Time avocado Allergy Itching Verified 09/29/21 13:46 banana Allergy Itching Verified 09/29/21 13:46 capsaicin Allergy Hives Verified 09/29/21 13:46 latex Allergy Rash Verified 09/29/21 13:46 pomegranate Allergy Itching Verified 09/29/21 13:46 shellfish derived Allergy tongue Verified 09/29/21 13:46 swelling, throat tightness Sulfa (Sulfonamide Allergy Rash Verified 09/29/21 13:46 Antibiotics) telithromycin [From Ketek] Allergy Hives Verified 09/29/21 13:46 dust Allergy watery Uncoded 01/16/21 18:11 eyes, runny nose Home Meds: Home Meds Ketamine Hcl [Ketamine Nasal [place] Compound] 1 dose IN ASDIRECTED PRN 06/08/19 [History] Cholecalciferol (Vitamin D3) [Vitamin D] 5,000 tab DAILY 01/16/21 [History] ClonazePAM [KlonoPIN] 0.5 mg PO BID PRN 01/16/21 [History] Pregabalin [Lyrica] 75 mg PO BID 01/16/21 [History] Sertraline [Zoloft] 75 mg PO DAILY 01/16/21 [History] Diclofenac Sodium [Voltaren 1% Gel] 1 applic TOP QID PRN 01/17/21 [History] Past Medical History HEENT History: Reports: Other (See Below) Other HEENT History: Wears glasses Cardiovascular History: Reports: Arrhythmia, Other (See Below) Other Cardiovascular History: thoracic outlet syndrome orthostatic hypotension Respiratory History: Reports: Other (See Below) Other Respiratory History: mild seasonal asthma Gastrointestinal History: Reports: GERD Genitourinary History: Reports: Other (See Below) Other Genitourinary History: "floating rt kidney" [employer]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 Chronic pain syndrome. Neurological History: Reports: None Psychiatric History: Reports: Anxiety, Depression Endocrine/Metabolic History: Reports: None, Other (See Below) Other Endocrine/Metabolic History: thyroid nodule nad hypoglycemia Hematologic History: Reports: None Immunologic History: Reports: None Oncologic (Cancer) History: Reports: None Dermatologic History: Reports: Psoriasis - Infectious Disease History Infectious Disease History: Reports: Chicken Pox - Past Surgical History Head Surgeries/Procedures: Reports: None HEENT Surgical History: Reports: Adenoidectomy, Tonsillectomy, Other (See Below) Other HEENT Surgeries/Procedures: Benign growth from throat Cardiovascular Surgical History: Reports: Other (See Below) Other Cardiovascular Surgeries/Procedures: thoracic outlet surgery 2018 Respiratory Surgical History: Reports: None GI Surgical History: Reports: Cholecystectomy, EGD Female Surgical History: Reports: Breast Implant, Endometrial Ablation, Hysterectomy, Other (See Below) Other Female Surgeries/Procedures: bartholin's cyst excision Endocrine Surgical History: Reports: None Neurological Surgical History: Reports: None Other Musculoskeletal Surgeries/Procedures:: 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 Social & Family History - Family History Family Medical History: Unobtainable - Caffeine Use Caffeine Use: Reports: Coffee ED ROS GENERAL - Review of Systems Review Of Systems: Comprehensive ROS is negative, except as noted in HPI. ED EXAM, GI/ABD - Physical Exam Exam: See Below Exam Limited By: No Limitations General Appearance: Alert, Mild Distress (due to abd pain) Ears: Normal External Exam Nose: Normal Inspection Throat/Mouth: Normal Inspection Head: Atraumatic, Normocephalic Neck: Normal Inspection Respiratory/Chest: No Respiratory Distress, Lungs Clear Cardiovascular: Normal Peripheral Pulses, Regular Rate, Rhythm GI/Abdominal Exam: Distended (mild), Tender, Other (puncture wounds granulating without erythema, ecchymosis or discharge) Back Exam: Normal Inspection Extremities: Normal Inspection Neurological: Alert, Oriented Psychiatric: Normal Affect, Normal Mood Skin Exam: Warm, Dry, Intact, Normal Color, No Rash Course - Vital Signs Last Recorded V/S: Last Vital Signs Temp 36.0 C L 09/29/21 12:20 Pulse 71 09/29/21 12:20 Resp 18 09/29/21 12:20 BP 118/75 09/29/21 12:20 Pulse Ox 100 09/29/21 12:20 - Orders/Labs/Meds Orders: Active Orders 24 hr Category Date Time Status Bladder Scan [RC] ASDIRECTED Care 09/29/21 12:39 Ordered COMPREHENSIVE METABOLIC PN,CMP [CHEM] Stat Lab 09/29/21 12:39 Ordered Labs: Laboratory Tests 09/29/21 09/29/21 Range/Units 13:25 13:40 WBC 6.80 (4.0-11.0) K/uL RBC 4.71 (4.30-5.90) M/uL Hgb 14.5 (12.0-16.0) g/dL Hct 42.5 (36.0-46.0) % MCV 90.2 (80.0-98.0) fL MCH 30.8 (27.0-32.0) pg MCHC 34.1 (31.0-37.0) g/dL RDW Std Deviation 42.2 (28.0-62.0) fl RDW Coeff of Lizz 13 (11.0-15.0) % Plt Count 289 (150-400) K/uL MPV 10.10 (7.40-12.00) fL Neut % (Auto) 71.3 (48.0-80.0) % Lymph % (Auto) 19.3 (16.0-40.0) % [place] % (Auto) 5.1 (0.0-15.0) % Eos % (Auto) 3.7 (0.0-7.0) % Baso % (Auto) 0.6 (0.0-1.5) % Neut # (Auto) 4.9 (1.4-5.7) K/uL Lymph # (Auto) 1.3 (0.6-2.4) K/uL [place] # (Auto) 0.4 (0.0-0.8) K/uL Eos # (Auto) 0.3 (0.0-0.7) K/uL Baso # (Auto) 0.0 (0.0-0.1) K/uL Nucleated RBC % 0.0 /100WBC Nucleated RBCs # 0 K/uL Urine Color YELLOW Urine Appearance CLEAR Urine pH 7.0 (5.0-8.0) Ur Specific [place] 1.015 (1.001-1.035) Urine Protein NEGATIVE (NEGATIVE) mg/dL Urine Glucose (UA) NEGATIVE (NEGATIVE) mg/dL Urine Ketones NEGATIVE (NEGATIVE) mg/dL Urine Occult Blood TRACE-INTACT H (NEGATIVE) Urine Nitrite NEGATIVE (NEGATIVE) Urine Bilirubin NEGATIVE (NEGATIVE) Urine Urobilinogen 0.2 (<2.0) EU/dL Ur Leukocyte Esterase NEGATIVE (NEGATIVE) Urine RBC 1-2 (0-2/HPF) Urine WBC 0-1 (0-5/HPF) Ur Epithelial Cells FEW (NONE-FEW) Urine Bacteria RARE (NEGATIVE) Meds: Medications Discontinued Medications Generic Name Dose Route Start Last Admin Trade Name Mehdiq PRN Reason Stop Dose Admin Fentanyl 50 mcg 09/29/21 12:43 09/29/21 13:43 Fentanyl 50 Mcg/Ml Sdv IVPUSH 09/29/21 12:44 50 mcg ONETIME ONE Administration Sodium Chloride 1,000 mls @ 999 mls/hr 09/29/21 12:43 09/29/21 13:41 Normal Saline IV 09/29/21 13:43 999 mls/hr STAT ONE Administration Ondansetron HCl 4 mg 09/29/21 12:46 09/29/21 13:43 Ondansetron 4 Mg/2 Ml Sdv IVPUSH 09/29/21 12:47 4 mg ONETIME ONE Administration - Re-Assessments/Exams Free Text/Narrative Re-Assessment/Exam: 09/29/21 14:11 Post void bladder scan 2 cc. Patient states that now she feels like she is emptying her bladder. Departure - Departure Time of Disposition: 14:27 Disposition: Home, Self-Care 01 Condition: Good Clinical Impression: Constipation Qualifiers: Constipation type: drug induced constipation Qualified Code(s): K59.03 - Drug induced constipation - Discharge Information Forms: ED Department Discharge Additional Instructions: The following information is given to patients seen in the emergency department who are being discharged to home. This information is to outline your options for follow-up care. We provide all patients seen in our emergency department with a follow-up referral. The need for follow-up, as well as the timing and circumstances, are variable depending upon the specifics of your emergency department visit. If you don't have a primary care physician on staff, we will provide you with a referral. We always advise you to contact your personal physician following an emergency department visit to inform them of the circumstance of the visit and for follow-up with them and/or the need for any referrals to a consulting sp ecialist. The emergency department will also refer you to a specialist when appropriate. This referral assures that you have the opportunity for follow-up care with a specialist. All of these measure are taken in an effort to provide you with optimal care, which includes your follow-up. Under all circumstances we always encourage you to contact your private physician who remains a resource for coordinating your care. When calling for follow-up care, please make the office aware that this follow-up is from your recent emergency room visit. If for any reason you are refused follow-up, please contact the [facility] Emergency Department at and asked to speak to the emergency department charge nurse. 1. MiraLAX once daily in the morning. Continue until stools are very soft 2. Stop Percocet. 3. Enema daily if unable to get stools moving. Manual disimpaction if unable to expel the stool. 4. Drink plenty of fluids 5. Follow-up with your surgeon Sepsis Event Note (ED) - Focused Exam Vital Signs: Vital Signs Temp Pulse Resp BP Pulse Ox 09/29/21 12:20 36.0 C L 71 18 118/75 100 - My Orders Last 24 Hours: My Active Orders 09/29/21 12:39 Bladder Scan [RC] ASDIRECTED COMPREHENSIVE METABOLIC PN,CMP [CHEM] Stat - Assessment/Plan Last 24 Hours: My Active Orders 09/29/21 12:39 Bladder Scan [RC] ASDIRECTED COMPREHENSIVE METABOLIC PN,CMP [CHEM] Stat
[2021-09-29 13:46] VITALS: PULSE 71
--- NOTE | 2021-09-29 14:08 | CT ---
INDICATION: Abdominal pain, bloating. Appendectomy and vaginal prolapse surgery 09/23/2021. Very minimal bowel movement since surgery. TECHNIQUE: CT of the abdomen and pelvis without intravenous contrast. Coronal and sagittal reconstructions. COMPARISON: None. FINDINGS: Tiny calcified granuloma in the left hepatic lobe. The unenhanced liver is otherwise unremarkable. Cholecystectomy. Mild dilation of common bile duct likely related to post cholecystectomy state. The unenhanced spleen, pancreas, and adrenal glands are normal in appearance. No hydronephrosis or ureteral dilation. No obstructing urinary calculi identified. The unenhanced bladder is normal in appearance. Hysterectomy. Mild fat stranding in the presacral region likely related to recent prolapse surgery. No abnormality in the adnexa. No bowel dilation. Moderate amount of stool in the ascending, transverse, and descending colon. No significant stool in the sigmoid colon or rectum. The appendix is not identified. No intraperitoneal free air or fluid. No suspicious fluid collection. No lymphadenopathy. The bones are unremarkable. The lung bases are clear. Bilateral breast implants. IMPRESSION: 1. No acute findings in the abdomen or pelvis on this noncontrast exam. 2. Moderate amount of stool throughout the colon. 3. Mild fat stranding in the presacral region likely related to recent prolapse surgery. No suspicious fluid collection. Please note that all CT scans at this facility use dose modulation, iterative reconstruction, and/or weight-based dosing when appropriate to reduce radiation dose to as low as reasonably achievable. Dictated by Faina Oseguera MD @ 09/29/2021 2:06:19 PM (Electronically Signed)
[2021-09-29 14:14] LABS: BLOOD UREA NITROGEN,BUN 12 mg/dL (7.0-18.0); CARBON DIOXIDE,CO2 28.7 mmol/L (21.0-32.0); CHLORIDE,CL 101 mmol/L (98-107); GLUCOSE RANDOM 97 mg/dL (74-106); POTASSIUM,K 4.1 mmol/L (3.5-5.1); SODIUM,NA 137 mmol/L (136-145)
[2021-09-29 14:50] VITALS: BP 113/73
== END 2021-09-29 14:52 | disposition home or self-care (01) ==
LOC: MW.ED 12:05
DX: K59.03 Drug induced constipation (principal); K21.9 Gastro-esophageal reflux disease without esophagitis; Z79.899 Other long term (current) drug therapy; Z88.8 Allergy status to other drugs, medicaments and biological substances; Z88.5 Allergy status to narcotic agent; Z88.1 Allergy status to other antibiotic agents; Z88.2 Allergy status to sulfonamides
CPT/HCPCS: 51798; 74176; 80053; 81001; 85025; 96374; 96375; 99284; J2405; J3010; J7030

== ENCOUNTER 2022-04-13 11:53 | Emergency (ER) | payer BC ==
[2022-04-13 14:14] VITALS: BP 115/75; PULSE 89
== END 2022-04-13 13:30 | disposition home or self-care (01) ==
LOC: MW.ED 11:53
DX: M79.631 Pain in right forearm (principal); K21.9 Gastro-esophageal reflux disease without esophagitis; Z79.899 Other long term (current) drug therapy; Z88.0 Allergy status to penicillin; Z88.1 Allergy status to other antibiotic agents; Z88.2 Allergy status to sulfonamides; Z88.8 Allergy status to other drugs, medicaments and biological substances
CPT/HCPCS: 93971-26-RT; 93971-RT; 99282; 99283-25

== ENCOUNTER 2023-06-15 11:44 | Emergency (ER) | payer BC ==
[2023-06-15 13:14] LABS: BASOPHILS PERCENT AUTO 0.5 % (0.0-1.5); EOSINOPHILS ABSOLUTE AUTO 0.3 K/uL (0.0-0.7); EOSINOPHILS PERCENT AUTO 5.3 % (0.0-7.0); HEMATOCRIT 43.6 % (36.0-46.0); HEMOGLOBIN 14.7 g/dL (12.0-16.0); LYMPHOCYTES ABSOLUTE AUTO 1.5 K/uL (0.6-2.4); LYMPHOCYTES PERCENT AUTO 24.6 % (16.0-40.0); MEAN CORPUSCULAR HEMOGLOBIN 30.2 pg (27.0-32.0); MEAN CORPUSCULAR HGB CONC 33.7 g/dL (31.0-37.0); MEAN CORPUSCULAR VOLUME 89.5 fL (80.0-98.0); MONOCYTES ABSOLUTE AUTO 0.3 K/uL (0.0-0.8); MONOCYTES PERCENT AUTO 4.8 % (0.0-15.0); NEUTROPHILS ABSOLUTE AUTO 3.8 K/uL (1.4-5.7); NEUTROPHILS PERCENT AUTO 64.8 % (48.0-80.0); NRBC ABSOLUTE 0 K/uL; PLATELET COUNT,PLT 275 K/uL (150-400); RED BLOOD CELL COUNT 4.87 M/uL (4.30-5.90); WHITE BLOOD CELL COUNT,WBC 5.89 K/uL (4.0-11.0)
[2023-06-15 13:40] LABS: A/G RATIO 1.1 (0.9-1.6); ALANINE AMINOTRANSFERASE,ALT 18 IU/L (14-63); ALBUMIN 4.1 g/dL (3.4-5.0); ALKALINE PHOSPHATASE 51 U/L (46-116); ASPARTATE AMNIOTRANSFERASE,AST 16 IU/L (15-37); BILIRUBIN TOTAL 0.3 mg/dL (0.2-1.0); BLOOD UREA NITROGEN,BUN 14 mg/dL (7.0-18.0); CALCIUM 8.6 mg/dL (8.5-10.1); CARBON DIOXIDE,CO2 30.1 mmol/L (21.0-32.0); CHLORIDE,CL 104 mmol/L (98-107); CREATININE 0.9 mg/dL (0.6-1.0); EST CRCL DRUG DOSING (CG) 68.73 mL/min; GLUCOSE RANDOM 98 mg/dL (74-106); MAGNESIUM 2.2 mg/dL (1.8-2.4); POTASSIUM,K 4.1 mmol/L (3.5-5.1); PROTEIN TOTAL,TP 7.7 g/dL (6.4-8.2); SODIUM,NA 139 mmol/L (136-145)
[2023-06-15 13:50] LABS: ESTIMATED GFR 83 mL/min (>60)
[2023-06-15] MEDS: Sodium Chloride 0.9% 1,000 ML IV ONE (13:59)
[2023-06-15] MEDS: Acetaminophen 500 MG Tab PO ONE (14:05)
[2023-06-15 15:28] VITALS: BP 111/66; PULSE 61
== END 2023-06-15 15:26 | disposition home or self-care (01) ==
LOC: MW.ED 11:44
DX: R55 Syncope and collapse (principal); R07.9 Chest pain, unspecified; R06.02 Shortness of breath; R00.2 Palpitations; Z91.018 Allergy to other foods; Z91.040 Latex allergy status; Z91.013 Allergy to seafood; Z88.2 Allergy status to sulfonamides; Z88.1 Allergy status to other antibiotic agents; Z91.048 Other nonmedicinal substance allergy status; Z79.899 Other long term (current) drug therapy; Z20.822 Contact with and (suspected) exposure to COVID-19
CPT/HCPCS: 36415; 71045; 80053; 83735; 84484; 85025; 85379; 87635; 93005; 96360; 99285; A9270; J7030; 93010; 99283; U0002

== ENCOUNTER 2024-08-16 09:53 | Day surgery (SDC) | payer MEDICARE, BC ==
[~2024-08-16 09:53] MED LIST changes: -Lactated Ringers 1,000 ML IV SCH; +Sodium Chloride 0.9% 20 ML SDV IV PRN
[2024-08-16] MEDS: Lactated Ringers 1,000 ML IV SCH (10:24)
[2024-08-16] MEDS ORDERED: propofoL 50 ML ONE (10:29)
[2024-08-16] MEDS ORDERED: Ketamine HCL/NACL, ISO-OSM 50 MG/5 ML Syringe ONE (10:49)
[2024-08-16] MEDS ORDERED: fentaNYL 100 MCG/2 ML SDV ONE (11:06)
[2024-08-16] MEDS ORDERED: Ondansetron 4 MG/2 ML SDV ONE (11:33)
[2024-08-16] MEDS ORDERED: Glycopyrrolate 0.2 MG/ML SDV ONE (11:35)
[2024-08-16 12:05] VITALS: BP 106/70; PULSE 61
== END 2024-08-16 12:20 | disposition home or self-care (01) ==
LOC: MW.SDS 09:53
PROVIDERS: ATTEND Surgery
DX: K62.5 Hemorrhage of anus and rectum (principal); F41.9 Anxiety disorder, unspecified; K21.9 Gastro-esophageal reflux disease without esophagitis; J45.909 Unspecified asthma, uncomplicated; Z88.8 Allergy status to other drugs, medicaments and biological substances; Z91.040 Latex allergy status; Z88.2 Allergy status to sulfonamides; Z91.013 Allergy to seafood; Z79.899 Other long term (current) drug therapy
CPT/HCPCS: 43239; 45380; 88305; J1596; J2405; J2704; J3010; J7120; 00813; J3490